=== PATIENT | female | born 1980 | race Two or more races ===

== ENCOUNTER 2016-12-06 13:21 | Emergency (ER) | payer OTHER ==
[2016-12-06 13:48] VITALS: BP 110/78; PULSE 85; TEMP 98; BMI 31.2
[2016-12-06] MEDS ORDERED: TOBRAMYCIN 0.3% OPHTH SOLN 5 ML BOTTLE OU ONE (14:56)
[2016-12-06] MEDS ORDERED: TOBRAMYCIN 0.3% OPHTH SOLN 5 ML BOTTLE ONE (14:58)
--- NOTE | 2016-12-06 15:07 | PDOC ---
History of Present Illness - General Chief Complaint: Pain Stated Complaint: EYES PAIN/ CHEMICAL CONTAMINATION Time Seen by Provider: 12/06/16 14:41 History Source: Patient Exam Limitations: No Limitations - History of Present Illness Initial Comments: 12/06/16 15:01 36 yr female with bilateral eye irritation after spilling chemical in her eyes yesterday. Pt immediately flushed with water, woke up today with red eyes. no discharge no vision change, positive light sensitvity. Severity: mild Past History - Past Medical History Allergies/Adverse Reactions: Allergies Allergy/AdvReac Type Severity Reaction Status Date / Time No Known Allergies Allergy Verified 12/06/16 13:48 Home Medications: Ambulatory Orders Tobramycin 0.3% Ophth Soln [Tobrex Ophthalmic Solution -] 1 - 2 drop OU Q4HWA # 2 bottle 12/06/16 - Psycho/Social/Smoking Cessation Hx Suicidal Ideation: No Smoking History: Never smoked Information on smoking cessation initiated: No Review of Systems - Review of Systems Able to Perform ROS?: Yes Is the patient limited [place]an proficient: No Constitutional: No: Symptoms Reported HEENTM: Yes: Symptoms Reported, See HPI, Eye Pain. No: Recent change in vision Respiratory: No: Symptoms reported Cardiac (ROS): No: Symptoms Reported ABD/GI: No: Symptoms Reported *Physical Exam - Vital Signs Last Vital Signs Temp Pulse Resp BP Pulse Ox 98 F 85 18 110/78 98 12/06/16 13:45 12/06/16 13:45 12/06/16 13:45 12/06/16 13:45 12/06/16 13:45 - Physical Exam General Appearance: Yes: Nourished, Appropriately Dressed HEENT: positive: EOMI, MARIA FERNANDA, Normal ENT Inspection, TMs Normal, Pharynx Normal, Other (bilateral sclera erythema, no drainage MYA EOMI ) Respiratory/Chest: positive: Lungs Clear, Normal Breath Sounds. negative: Chest Tender Cardiovascular: positive: Regular Rhythm, Regular Rate Procedures - Eye Procedure Alcaine Drops Administered: Yes Antibiotic Oinment/Drps Admin: both eyes (tobramycin drops placed) Progress: 12/06/16 15:04 neg fluoroscein uptake neg abrasion Medical Decision Making - Medical Decision Making 12/06/16 15:04 cc: chemical spill in eyes yesterday, cleaning solution with lavender and massiel red and irritated today will give tobramycin eye drops and refer to optho for follow up *DC/Admit/Observation/Transfer Diagnosis at time of Disposition: Eye redness Chemical burn of eye or adnexa Qualifiers: Encounter type: initial encounter Laterality: unspecified laterality Qualified Code(s): T26.90XA - Corrosion of unspecified eye and adnexa, part unspecified, initial encounter - Discharge Dispostion Disposition: HOME Condition at time of disposition: Good - Prescriptions Prescriptions: Tobramycin 0.3% Ophth Soln [Tobrex Ophthalmic Solution -] 1 - 2 drop OU Q4HWA # 2 bottle - Referrals Referrals: Tanika Huerta MD [Primary Care Provider] - José Miguel Solano MD [Staff Physician] - - Patient Instructions Additional Instructions: follow with the eye doctor in 24-48hrs for a follow up exam use the tobramycin eye drops 2 drops four times a day for 5 days to both eyes take an over the counter pain reliever such as motrin for pain
== END 2016-12-06 15:19 | disposition home or self-care (01) ==
LOC: JERFT 13:21
DX: T26.90XA Corrosion of unspecified eye and adnexa, part unspecified, initial encounter (principal); X58.XXXA Exposure to other specified factors, initial encounter; Y93.89 Activity, other specified; Y92.9 Unspecified place or not applicable
CPT/HCPCS: 99281-25

== ENCOUNTER 2017-05-05 19:18 | Emergency (ER) | payer OTHER ==
[2017-05-05 19:40] VITALS: BP 128/85; PULSE 83; TEMP 98.8; BMI 28.3
[2017-05-05] MEDS ORDERED: KETOROLAC TROMETHAMINE 60 MG/2 ML VIAL ONE (19:48)
--- NOTE | 2017-05-05 19:51 | PDOC ---
History of Present Illness - General Chief Complaint: Pain, Acute Stated Complaint: TOOTH PAIN Time Seen by Provider: 05/05/17 19:49 History Source: Patient Exam Limitations: No Limitations - History of Present Illness Initial Comments: 05/05/17 20:09 Patient here for evaluation of significant dental pain in multiple areas. States nose has a problem tooth under a root canal on the right lower first molar with swelling, also has 2 other teeth on the left side upper and lower that have been cracked for many weeks. Patient states has been unable to afford dental and restorative work but states pain has progressively worsened where she feels is unable to tolerate through the weekend. Denies fever, has some mild facial tenderness on the right side but no true swelling. Severity: reports: moderate, severe Pain Location: reports: face Associated Symptoms (Fall): headache Past History - Travel Traveled outside of the country in the last 30 days: No Close contact w/someone who was outside of country & ill: No - Past Medical History Allergies/Adverse Reactions: Allergies Allergy/AdvReac Type Severity Reaction Status Date / Time No Known Allergies Allergy Verified 05/05/17 19:34 Home Medications: Ambulatory Orders Tobramycin 0.3% Ophth Soln [Tobrex Ophthalmic Solution -] 1 - 2 drop OU Q4HWA # 2 bottle 12/06/16 Amoxicillin - [Amoxicillin 500mg Capsule -] 500 mg PO TID #21 capsule 05/05/17 Naproxen [Naprosyn -] 500 mg PO BID #14 tablet 05/05/17 Oxycodone HCl/Acetaminophen [Percocet 5-325 mg Tablet -] 1 - 2 tab PO Q4H PRN # 10 tablet MDD 6 05/05/17 Other medical history: Pt denies - Psycho/Social/Smoking Cessation Hx Suicidal Ideation: No Smoking History: Never smoked Information on smoking cessation initiated: No Hx Alcohol Use: No Drug/Substance Use Hx: No Substance Use Type: None Trauma Specific PMHX - Complaint Specific PMHX Back Injury: No Neck Injury: No Review of Systems - Review of Systems Able to Perform ROS?: Yes Comments:: 05/05/17 20:10 Is the patient limited [place]err[place]ian proficient: Yes Constitutional: Yes: Symptoms Reported, See HPI, Malaise HEENTM: Yes: Symptoms Reported, See HPI, Nose Congestion Respiratory: Yes: Symptoms reported *Physical Exam - Vital Signs Last Vital Signs Temp Pulse Resp BP Pulse Ox 98.8 F 83 20 128/85 100 05/05/17 19:34 05/05/17 19:34 05/05/17 19:34 05/05/17 19:34 05/05/17 19:34 - Physical Exam General Appearance: Yes: Appropriately Dressed, Apparent Distress HEENT: positive: MARIA FERNANDA, TMs Normal, Pharynx Normal, Other (has some mild swelling nonfluctuant to right lower first molar with some discoloration to the gums, no true abscess palpated but is quite tender. Left first molar upper with missing tooth, left lower wisdom tooth swollen without any abscess noted to upper or lower aspect of left side of gums.) Neck: positive: Supple. negative: Tender Respiratory/Chest: positive: Chest Tender, Lungs Clear Musculoskeletal: negative: Normal Inspection, CVA Tenderness Extremity: positive: Normal Capillary Refill, Normal Inspection Integumentary: positive: Normal Color, Dry, Warm Neurologic: positive: vice president of talent management II-XII NML intact, Fully Oriented, Alert, Normal Mood/ Affect, Normal Response, Motor Strength 5/5 Progress Note - Progress Note Progress Note: Multiple dental injury/infection. Will start amoxicillin, medicated with IM Toradol, given #10 Percocet tablets and instructed to seek immediate dental evaluation for definitive treatment. Understands need to return immediately to ER for worsening swelling, fevers worsened pain. *DC/Admit/Observation/Transfer Diagnosis at time of Disposition: Toothache - Discharge Dispostion Disposition: HOME Condition at time of disposition: Stable Admit: No - Prescriptions Prescriptions: Amoxicillin - [Amoxicillin 500mg Capsule -] 500 mg PO TID #21 capsule Naproxen [Naprosyn -] 500 mg PO BID #14 tablet Oxycodone HCl/Acetaminophen [Percocet 5-325 mg Tablet -] 1 - 2 tab PO Q4H PRN # 10 tablet MDD 6 PRN Reason: Pain - Referrals Referrals: Tanika Huerta MD [Primary Care Provider] - - Patient Instructions Printed Discharge Instructions: DI for Dental Pain Additional Instructions: Rest, drink lots of fluids: Teas, water, soups Saltwater gargles/ keep mouth clean and rinse after each meal May use wet teabag for pain relief to area/ Anbesol or [id number] remedies Avoid hard chewing foods, stick to ice cream, Jell-O, yogurt etc. Tylenol or Motrin for fever and pain May use Percocet one or 2 tablets every 6 hours for severe pain, understanding will make dizzy and sleepy Complete all medication as prescribed Seek dental appointment as soon as possible for evaluation of dental injury/pain Followup with private physician in one to 2 days as needed Return to emergency department for worsened symptoms, fevers, swelling to face or worsened pain - Post Discharge Activity Work/School Note: Back to Work
[2017-05-05] MEDS ORDERED: KETOROLAC TROMETHAMINE 60 MG/2 ML VIAL IM ONE (20:03)
== END 2017-05-05 20:18 | disposition home or self-care (01) ==
LOC: JERFT 19:18
PROC: 3E0233Z Introduction of Anti-inflammatory into Muscle, Percutaneous Approach (ICD-10-PCS; principal; 2017-05-05)
DX: K08.89 Other specified disorders of teeth and supporting structures (principal)
CPT/HCPCS: 99281-25

== ENCOUNTER 2017-05-16 08:39 | Emergency (ER) | payer OTHER ==
[2017-05-16 08:42] VITALS: BP 127/64; PULSE 88; TEMP 98.2; BMI 27.7
--- NOTE | 2017-05-16 09:03 | PDOC ---
History of Present Illness - General Chief Complaint: Pain Stated Complaint: TOOTHACHE Time Seen by Provider: 05/16/17 08:56 History Source: Patient Exam Limitations: No Limitations - History of Present Illness Initial Comments: 05/16/17 08:56 CHIEF COMPLAINT: Left upper left first molar decay with pain. HISTORY OF PRESENT ILLNESS: Patient is an otherwise healthy, 37 y/o female with left upper dental pain for several months, worse in the last two day. Throbbing pain. Patient has been seen in the ER for the same. Has not been able to get an appointment for dentist. Patient denies any pain, no respiratory difficulty, no difficulty swallowing. Past History - Past Medical History Allergies/Adverse Reactions: Allergies Allergy/AdvReac Type Severity Reaction Status Date / Time No Known Allergies Allergy Verified 05/16/17 08:39 Home Medications: Ambulatory Orders Ibuprofen [Motrin -] 600 mg PO QID #28 tablet 05/16/17 Oxycodone HCl/Acetaminophen [Percocet 5-325 mg Tablet] 1 - 2 tab PO Q4H #24 tablet MDD 12 05/16/17 Penicillin V Potassium [Pen Vee K -] 500 mg PO QID #40 tablet 05/16/17 Other medical history: none - Psycho/Social/Smoking Cessation Hx Anxiety: No Suicidal Ideation: No Smoking History: Never smoked Have you smoked in the past 12 months: No Information on smoking cessation initiated: No Hx Alcohol Use: No Drug/Substance Use Hx: No Substance Use Type: None Review of Systems - Review of Systems Constitutional: No: Symptoms Reported HEENTM: Yes: Mouth Pain, Dental Problems. No: Throat Pain, Throat Swelling, Difficulty Swallowing, Mouth Swelling Respiratory: No: Symptoms reported Cardiac (ROS): No: Symptoms Reported ABD/GI: No: Symptoms Reported Musculoskeletal: No: Symptoms Reported Integumentary: No: Symptoms Reported Neurological: No: Symptoms reported Hematologic/Lymphatic: No: Symptoms Reported, Lymph Node Abnormalities, Swollen Glands All Other Systems: Reviewed and Negative *Physical Exam - Vital Signs Last Vital Signs Temp Pulse Resp BP Pulse Ox 98.2 F 88 18 127/64 100 05/16/17 08:40 05/16/17 08:40 05/16/17 08:40 05/16/17 08:40 05/16/17 08:40 - Physical Exam General Appearance: Yes: Appropriately Dressed. No: Apparent Distress HEENT: positive: Other (left first upper molar pain, decay no visible abscess. ). negative: Tonsillar Exudate, Tonsillar Erythema, Rhinorrhea, Sinus Tenderness, TM Bulging, TM Dull, TM Erythema, Excessive drooling Neck: positive: Trachea midline. negative: Tender, Tender lateral, Tender midline Respiratory/Chest: positive: Lungs Clear, Normal Breath Sounds Cardiovascular: positive: Regular Rhythm, Regular Rate Lymphatic: negative: Adenopathy Integumentary: positive: Normal Color, Dry Neurologic: positive: Fully Oriented, Alert, Normal Mood/Affect Medical Decision Making - Medical Decision Making 05/16/17 09:49 A/P: Patient here for evaluation of dental decay with pain. No facial edema, no difficulty swallowing, no throat pain, no difficulty breathing. Called patient' s dentist to states they take walk-ins from 10-12 instructed patient to go immediately to dental office upon discharge. Prescription for Percocet, penicillin and Motrin given to patient, she verbalized understanding. Will follow-up as instructed. *DC/Admit/Observation/Transfer Diagnosis at time of Disposition: Toothache, Dental decay - Discharge Dispostion Admit: No - Prescriptions Prescriptions: Ibuprofen [Motrin -] 600 mg PO QID #28 tablet Penicillin V Potassium [Pen Vee K -] 500 mg PO QID #40 tablet Oxycodone HCl/Acetaminophen [Percocet 5-325 mg Tablet] 1 - 2 tab PO Q4H #24 tablet MDD 12 - Patient Instructions Printed Discharge Instructions: DI for Tooth Decay Additional Instructions: Please follow up in the office of your dentist between 10 and 12 today. They take walk-ins.
== END 2017-05-16 09:21 | disposition home or self-care (01) ==
LOC: JERFT 08:39
DX: K02.9 Dental caries, unspecified (principal)
CPT/HCPCS: 99281-25

== ENCOUNTER 2017-11-15 06:10 | Emergency (ER) | payer OTHER ==
[2017-11-15 06:30] VITALS: BMI 33.5
--- NOTE | 2017-11-15 07:23 | PDOC ---
History of Present Illness - General History Source: Patient Exam Limitations: No Limitations - History of Present Illness Initial Comments: 11/15/17 08:04 The patient is a 37 year old approximately 15 week female(), with no significant past medical history, who presents to the emergency department with a headache for approximately 3 days. The patient reports her headache is constant and localized frontally and is nonradiating in nature. She describes her headache as a pounding sensation. She reports associated photophobia and nausea, but denies any blurry vision, dizziness, lightheadedness, numbness, or tingling. Patient reports she has not taken anything for the pain. Patient reports mild suprapubic discomfort, but denies any vaginal bleeding or discharge. She denies any vomiting, diarrhea, or constipation. She denies any flank pain, dysuria, hematuria, frequency, or urgency. She reports intermittent cough, but denies any fever or chills. She denies any chest pain, shortness of breath, diaphoresis, or palpitations. Allergies: NKDA Past Surgical History: None reported Social History: Non smoker. No ETOH or recreational drug use. OB: Argenis Dominguez <Snehal Masters - Last Filed: 11/15/17 08:04> <Kenyon Mustafa - Last Filed: 11/15/17 09:57> - General Chief Complaint: Headache Stated Complaint: HEADACHE, 15 WKS Time Seen by Provider: 11/15/17 07:19 Past History <Snehal Masters - Last Filed: 11/15/17 08:04> - Past Medical History COPD: Yes Other medical history: Pt denies - Suicide/Smoking/Psychosocial Hx Smoking History: Never smoked Have you smoked in the past 12 months: No Information on smoking cessation initiated: No Hx Alcohol Use: No Drug/Substance Use Hx: No Substance Use Type: None <Kenyon Mustafa - Last Filed: 11/15/17 09:57> - Past Medical History Allergies/Adverse Reactions: Allergies Allergy/AdvReac Type Severity Reaction Status Date / Time No Known Allergies Allergy Verified 11/15/17 06:22 Home Medications: Ambulatory Orders NK [No Known Home Medication] 11/15/17 Review of Systems - Review of Systems Able to Perform ROS?: Yes Comments:: 11/15/17 08:05 CONSTITUTIONAL: No fever, no chills, no fatigue EYES:+Photophobia. No blurry vision. ENT: No ear pain, no sore throat CARDIOVASCULAR: No chest pain, no palpitations RESPIRATORY: +Cough. No SOB GI: +Suprapubic abdominal pain. No nausea, no vomiting, no constipation, no diarrhea GENITOURINARY: No dysuria, no frequency, no hematuria MUSCULOSKELETAL: No back pain, no joint pain, no myalgias SKIN: No rash NEURO: +Headache. No dizziness or lightheadedness. <Snehal Masters - Last Filed: 11/15/17 08:04> *Physical Exam - Vital Signs Last Vital Signs Temp Pulse Resp BP Pulse Ox 98.0 F 85 20 126/68 97 11/15/17 06:23 11/15/17 06:23 11/15/17 06:23 11/15/17 06:23 11/15/17 06:23 - Physical Exam Comments: 11/15/17 08:05 CONSTITUTIONAL: Well-appearing; well-nourished; in no apparent distress HEAD: Normocephalic; atraumatic EYES: +Photophobia. PERRL; EOM intact ENMT: External appears normal; normal oropharynx NECK: Supple; non-tender; no cervical lymphadenopathy. No meningismus. CARD: Normal S1, S2; no murmurs, rubs, or gallops RESP: Normal chest excursion with respiration; breath sounds clear and equal bilaterally; no wheezes, rhonchi, or rales ABD: Soft, non-distended; non-tender; no palpable organomegaly, no palpable hernias EXT: Normal ROM in all four extremities; non-tender to palpation; distal pulses intact SKIN: Warm, dry, no rash NEURO: No focal neurological deficiencies. Alert, awake, appropriate. Cranial nerves 2-12 intact. No motor deficits in the in face, upper extremities and lower extremities. Normoreflexic in the upper and lower extremities. Normal speech. Toes are down-going bilaterally. Gait is normal without ataxia. No cerebellar deficits. 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 I suspect migraine headache. Subarachnoid hemorrhage or meningitis highly unlikely. Neurological evaluation reveals no focal deficits, there is no evidence of meningismus; I do not suspect preeclampsia or sinus venous thrombosis. We'll administer Reglan and Benadryl. We'll judiciously hydrate. Will reevaluate. Likely discharge. 11/15/17 08:46 Patient reassessed. Patient is resting comfortably, with improvement in level of her symptoms. We'll continue to reassess. 11/15/17 09:54 Patient reassessed. Patient is resting comfortably; patient is symptom-free. The headache is completely resolved. I do not suspect subarachnoid hemorrhage at this time. There is no evidence of meningismus. 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 <Kenyon Mustafa - Last Filed: 11/15/17 09:57> *DC/Admit/Observation/Transfer - Attestations Scribe Attestion: 11/15/17 08:05 Documentation prepared by Snehal Masters, acting as medical economics consultant for Kenyon Mustafa MD. <Snehal Masters - Last Filed: 11/15/17 08:04> - Attestations Physician Attestion: 11/15/17 08:11 The documentation was prepared by the scribe under my direct supervision. I have reviewed the documentation which correctly represents the findings, medical decision-making and critical action taken by me. <Kenyon Mustafa - Last Filed: 11/15/17 09:57> Diagnosis at time of Disposition: Headache in Qualifiers: Trimester: first trimester Qualified Code(s): O26.891 - Other specified related conditions, first trimester; R51 - Headache; R51 - Headache - Discharge Dispostion Disposition: HOME Condition at time of disposition: Stable - Referrals Referrals: Tanika Huerta MD [Primary Care Provider] - - Patient Instructions Printed Discharge Instructions: DI for Headache - Post Discharge Activity
[2017-11-15] MEDS ORDERED: METOCLOPRAMIDE HCL INJECTION 10 MG/2 ML VIAL IVPUSH ONE (07:35)
[2017-11-15] MEDS ORDERED: SODIUM CHLORIDE 500 ML IV STA (07:35)
[2017-11-15] MEDS ORDERED: METOCLOPRAMIDE HCL INJECTION 10 MG/2 ML VIAL ONE (08:07)
[2017-11-15 08:14] LABS: URINE APPEARANCE SLCLOUDY; URINE BILIRUBIN NEGATIVE (NEGATIVE); URINE BLOOD NEGATIVE (NEGATIVE); URINE COLOR YELLOW; URINE GLUCOSE (UA) NEGATIVE (NEGATIVE); URINE KETONE NEGATIVE (NEGATIVE); URINE NITRITE NEGATIVE (NEGATIVE); URINE PROTEIN NEGATIVE (NEGATIVE); URINE UROBILINOGEN NEGATIVE mg/dL (0.2-1.0)
[2017-11-15 08:18] LABS: URINE LEUK ESTERASE 3+ (NEGATIVE)
[2017-11-15 08:19] LABS: EPI CELLS MODERATE /HPF (FEW); URINE BACTERIA MODERATE /hpf (NONE SEEN); URINE MUCUS FEW
[2017-11-15 10:26] VITALS: BP 105/71; PULSE 72; TEMP 98.1
--- NOTE | 2017-11-17 07:31 | PDOC ---
Patient Follow-up (Call Back) - Post ED Follow - Up Condition at time of discharge: Stable Disposition at time of original discharge: HOME Reason for Call Back: Abnwl. Microbiology (Grp B strep on ucx, no sensitivity Called pt, 15 weeks , no dysuria, flank pain, n/v/f/c Rx for keflex sent to pharmacy, will f/u on final report)
--- NOTE | 2017-11-18 08:08 | PDOC ---
Patient Follow-up (Call Back) - Post ED Follow - Up Condition at time of discharge: Stable Disposition at time of original discharge: HOME Reason for Call Back: Abnwl. Microbiology (Patient with positive urine culture on Keflex, sensitivity still pending.)
== END 2017-11-15 10:00 | disposition home or self-care (01) ==
LOC: JER 06:10
PROC: 3E033GC Introduction of Other Therapeutic Substance into Peripheral Vein, Percutaneous Approach (ICD-10-PCS; principal; 2017-11-15)
PROC: 3E033GC Introduction of Other Therapeutic Substance into Peripheral Vein, Percutaneous Approach (ICD-10-PCS; 2017-11-15)
DX: O26.892 Other specified pregnancy related conditions, second trimester (principal); R51 Headache; Z3A.15 15 weeks gestation of pregnancy
CPT/HCPCS: 81003; 81015; 87086; 87186; 99282-25

== ENCOUNTER 2017-12-08 15:09 | Emergency (ER) | payer OTHER ==
[2017-12-08] MEDS ORDERED: ACETAMINOPHEN 325 MG TABLET (FP) PO ONE (15:30)
--- NOTE | 2017-12-08 15:30 | PDOC ---
Rapid Medical Evaluation Time Seen by Provider: 12/08/17 15:25 Medical Evaluation: Allergies Allergy/AdvReac Type Severity Reaction Status Date / Time No Known Allergies Allergy Verified 11/15/17 06:22 12/08/17 15:26 I have performed a brief in-person evaluation of this patient. The patient presents with a chief complaint of: Cough w/ rhinorrhea, WILL, body aches and fever x 3 days. Currently ~6 weeks w/ +IUP w/ FHR on [facility] at [facility] as per pt Pertinent physical exam findings:Temp 99.6 w/ HR of 120 I have ordered the following:Tylenol 650 mg The patient will proceed to the ED for further evaluation.
[2017-12-08 15:52] VITALS: BP 118/72; PULSE 120; TEMP 99.6; BMI 33.5
--- NOTE | 2017-12-08 16:56 | PDOC ---
History of Present Illness - General Chief Complaint: Respiratory Stated Complaint: FEVER, (4 WKS ) Time Seen by Provider: 12/08/17 15:25 History Source: Patient Exam Limitations: No Limitations - History of Present Illness Initial Comments: 12/08/17 16:51 Patient is a 37-year-old female, currently 17 weeks presents with 4 days of nasal congestion, body aches, fever, no nausea vomiting or diarrhea. Patient eating and drinking without difficulty. She denies any urinary symptoms , no chest pain or shortness of breath. Past Medical History: [Denies]. Allergies: No known allergies Medications: vitamins Family History: Non-contributory Social History: Denies smoking, alcohol use, or IVDU Review of Systems GENERAL/CONSTITUTIONAL: Fever and chills and body aches, No weakness. No weight change.] HEAD, EYES, EARS, NOSE AND THROAT: [No change in vision. No ear pain or discharge. No sore throat. Nasal congestion] CARDIOVASCULAR: [No chest pain or shortness of breath.] RESPIRATORY: [No cough, wheezing, or hemoptysis.] GASTROINTESTINAL: [No nausea, vomiting, diarrhea or constipation. No rectal bleeding.] GENITOURINARY: [No dysuria, frequency, or change in urination.] MUSCULOSKELETAL: [No joint or muscle swelling or pain. No neck or back pain.] SKIN AND BREASTS: [No rash or easy bruising.] NEUROLOGIC: [Headache no vertigo, loss of consciousness, or loss of sensation.] PSYCHIATRIC: [No depression or anxiety.] ENDOCRINE: [No increased thirst. No abnormal weight change.] HEMATOLOGIC/LYMPHATIC: [No anemia, easy bleeding, or history of blood clots.] ALLERGIC/IMMUNOLOGIC: [No hives or skin allergy. No latex allergy.] Physical Exam: GENERAL: [The patient is awake, alert, and fully oriented, in no acute distress. ] EYES: [Pupils equal, round and reactive to light, extraocular movements intact, sclera anicteric, conjunctiva clear.] ENT: [Ears normal, nares congested but patent after nose blowing, oropharynx clear without exudates. Moist mucous membranes. No uvula deviation. No sinus pressure and pain] NECK: [Normal range of motion, supple without lymphadenopathy, JVD, or masses.] LUNGS: [Breath sounds equal, clear to auscultation bilaterally. No wheezes, and no crackles.] HEART: [Regular rate and rhythm, normal S1 and S2 without murmur, rub or gallop. ] ABDOMEN: [Gravid , nontender, normoactive bowel sounds. No guarding, no rebound. No masses. No bruising or abrasions] MUSCULOSKELETAL: [Normal range of motion, no edema. No clubbing or cyanosis. No cords, erythema, or tenderness. No CVA Tenderness with fist.] NEUROLOGICAL: [Cranial nerves II through XII grossly intact. Normal speech, normal gait.] SKIN: [Warm, Dry, normal turgor, no rashes or lesions noted.] 12/08/17 16:51 12/08/17 17:03 Past History - Past Medical History Allergies/Adverse Reactions: Allergies Allergy/AdvReac Type Severity Reaction Status Date / Time No Known Allergies Allergy Verified 12/08/17 16:02 Home Medications: Ambulatory Orders NK [No Known Home Medication] 12/08/17 COPD: Yes - Reproductive History (#): 3 Para: 2 Cervical CA: No Dysfunctional Uterine Bleeding: No Ectopic : No Endometrial CA: No Polycystic Ovaries: No Therapeutic (s) & number: No Tubal Ligation: No - Suicide/Smoking/Psychosocial Hx Smoking History: Never smoked Have you smoked in the past 12 months: No Hx Alcohol Use: No Drug/Substance Use Hx: No Substance Use Type: None *Physical Exam - Vital Signs Last Vital Signs Temp Pulse Resp BP Pulse Ox 99.6 F 120 H 20 118/72 99 12/08/17 15:49 12/08/17 15:49 12/08/17 15:49 12/08/17 15:49 12/08/17 15:49 ED Treatment Course - Medications Given in the ED: ED Medications Discontinued Medications Generic Name Dose Route Start Last Admin Trade Name Freq PRN Reason Stop Dose Admin Acetaminophen 650 mg 12/08/17 15:30 12/08/17 15:54 Tylenol - PO 12/08/17 15:31 650 mg ONCE ONE Administration Medical Decision Making - Medical Decision Making 12/08/17 16:53 A/P: Patient with fever, body aches and chills, headache. 12/08/17 17:04 Rapid influenza sent, patient is influenza A positive. Patient is out of the window for Tamiflu. She is able to tolerate fluids and is well-appearing, will DC patient home supportive care increase fluid intake to maintain proper hydration. Increase protein intake. Follow-up with PMD on Monday if any dizziness, lethargy, feeling of faint, or any other concerns return immediately to ER *DC/Admit/Observation/Transfer Diagnosis at time of Disposition: Influenza A - Discharge Dispostion Disposition: HOME Condition at time of disposition: Stable Admit: No - Referrals - Patient Instructions Printed Discharge Instructions: DI for Influenza -- Adult Additional Instructions: You have been diagnosed with influenza a. Please take the medication as directed. You are contagious. Please attempt to avoid contact of multiple individuals as this will cause the infection to spread. Return to emergency room if shortness of breath, wheezing, fever greater than 101, chest pain, or fainting occurs. - Post Discharge Activity Forms/Work/School Notes: Back to Work
== END 2017-12-08 17:11 | disposition home or self-care (01) ==
LOC: JER 15:09 → JERFT 15:09
DX: O98.511 Other viral diseases complicating pregnancy, first trimester (principal); J10.1 Influenza due to other identified influenza virus with other respiratory manifestations; Z3A.01 Less than 8 weeks gestation of pregnancy
CPT/HCPCS: 87804; 99281-25

== ENCOUNTER 2018-05-07 13:53 | Inpatient (IN) | payer OTHER ==
[2018-05-07] MEDS ORDERED: ELECTROLYTE-148 SOLN 500 ML IV ONE (14:00)
[2018-05-07] MEDS ORDERED: AMPICILLIN SODIUM 2 GM VIAL ONE (14:31)
[2018-05-07 14:37] LABS: BASO % 0.9 % (0-2.0); HEMATOCRIT 40.3 % (32.4-45.2); HEMOGLOBIN 13.5 GM/dL (10.7-15.3); LYMPH % 9.9 % (8-40); MCH 29.5 pg (25.7-33.7); MCHC 33.4 g/dl (32.0-36.0); MEAN CELL VOLUME 88.4 fl (80-96); MEAN PLT VOLUME 8.8 fl (7.5-11.1); MONO % 3.9 % (3.8-10.2); NEUT % 85.3 % (42.8-82.8); PLATELET COUNT 202 K/MM3 (134-434); RBC 4.56 M/mm3 (3.60-5.2); RDW 14.4 % (11.6-15.6); WHITE BLOOD COUNT 14.3 K/mm3 (4.0-10.0)
--- NOTE | 2018-05-07 14:37 | HP ---
Past Medical History - Admission Chief Complaint: contractions History of Present Illness: 37 y/o P2 female with SIUP at 39.5 weeks here with complaints of painful contractions. Was seen on L&D twice over the weekend, was not dilated, and sent home. No LOF/VB. complicated by AMA, GBS positive. H/O X 2. History Source: Patient, Medical Record Limitations to Obtaining History: No Limitations - Past Medical History Cardiovascular: No: HTN Pulmonary: Yes: COPD Gastrointestinal: No: GERD Reproductive: No: Ectopic , Fibroids, PID ...: 3 ...Para: 2 Heme/Onc: No: Anemia Infectious Disease: No: HIV, MRSA, STD's Musculoskeletal: No: Chronic low back pain Endocrine: No: Diabetes Insipidus, Diabetes Mellitus - Past Surgical History Hx Myomectomy: No Hx Transabdominal Cerclage: No - Smoking History Smoking history: Never smoked Have you smoked in the past 12 months: No - Alcohol/Substance Use Hx Alcohol Use: No - Social History Usual Living Arrangement: Yes: With Spouse ADL: Independent Home Medications - Allergies Allergies/Adverse Reactions: Allergies Allergy/AdvReac Type Severity Reaction Status Date / Time No Known Allergies Allergy Verified 05/07/18 14:25 - Home Medications Home Medications: Ambulatory Orders Pnv No.95/Ferrous Fum/Folic AC [ Vitamin Tablet] 1 each PO DAILY Review of Systems - Review of Systems Constitutional: reports: No Symptoms Eyes: reports: No Symptoms HENT: reports: No Symptoms Neck: reports: No Symptoms Cardiovascular: reports: No Symptoms Respiratory: reports: No Symptoms Gastrointestinal: reports: No Symptoms Genitourinary: reports: No Symptoms Breasts: reports: No Symptoms Reported Musculoskeletal: reports: No Symptoms Integumentary: reports: No Symptoms Neurological: reports: No Symptoms Endocrine: reports: No Symptoms Hematology/Lymphatic: reports: No Symptoms Psychiatric: reports: No Symptoms Physical Exam - Maternity Constitutional: Yes: Well Nourished, Mild Distress Eyes: Yes: Conjunctiva Clear, EOM Intact HENT: Yes: Atraumatic, Normocephalic Neck: Yes: Supple, Trachea Midline Cardiovascular: Yes: Regular Rate and Rhythm Lungs: Clear to auscultation - Abdominal Exam/OB Number of Fetuses: Single Presentation: Vertex Contractions: Yes Regularity: Regular Intensity: Moderate Category: I Accelerations: Uniform Decelerations: None - Vaginal Exam/OB Vaginal Bleediing: No Dilatation (cm): 3 Effacement (%): 90 Amniotic Membrane Status: Intact Presentation: Vertex/Position Station: -2 - Physical Exam Psychiatric: Yes: Alert, Oriented Problem List - Problems (1) Active labor at term Code(s): [id number] - (2) GBS (group B Streptococcus carrier), +RV culture, currently Code(s): O99.820 - STREPTOCOCCUS B CARRIER STATE COMPLICATING Assessment/Plan 37 y/o with SIUP, active labor at 39.5 weeks AFVSS NST cat 1 admit to L&D start IV labs epidural prn GBS positive, start ampicillin
[2018-05-07] MEDS ORDERED: PROMETHAZINE HCL 25 MG/1 ML VIAL IVPUSH ONE (14:40)
[2018-05-07] MEDS ORDERED: BUTORPHANOL TARTRATE 1 MG/ML VIAL IVPB ONE (14:40)
[2018-05-07] MEDS ORDERED: AMPICILLIN - 2 GM in SODIUM CHLORIDE 100 ML IVPB ONE (14:42)
[2018-05-07 14:51] VITALS: BMI 39.0
[2018-05-07 14:53] LABS: INR 1.03 (0.83-1.09); PROTHROMBIN TIME (PATIENT) 11.6 SEC (9.7-13.0)
[2018-05-07] MEDS ORDERED: FENTANYL/BUPIVACAINE/NS/PF - PCEA - 50 ML DISP.SYRIN EP ONE ×2 (14:53→19:59)
[2018-05-07 14:54] LABS: ANION GAP 10 (8-16); BLOOD UREA NITROGEN 6 mg/dL (7-18); CALCIUM 9.1 mg/dL (8.5-10.1); CHLORIDE 103 mmol/L (98-107); CO2 24 mmol/L (21-32); CREATININE 0.6 mg/dL (0.55-1.02); GLUCOSE,RANDOM 105 mg/dL (74-106); POTASSIUM 3.6 mmol/L (3.5-5.1); SODIUM 137 mmol/L (136-145)
[2018-05-07 14:55] LABS: ACTIVATED PTT 26.9 SECONDS (25.2-36.5)
[2018-05-07] MEDS: FENTANYL/BUPIVACAINE/NS/PF - PCEA - 50 ML DISP.SYRIN EP SCH (15:15)
[2018-05-07] MEDS: ELECTROLYTE-148 SOLN 1,000 ML IV SCH (15:15)
[2018-05-07] MEDS ORDERED: NALOXONE HCL 0.4 MG/ML VIAL IVPUSH PRN (15:24)
[2018-05-07] MEDS ORDERED: TUBERCULIN PPD 5 TU/0.1ML SYRINGE (IN PATIENT USE ONLY) ID ONE (17:00)
[2018-05-07] MEDS ORDERED: AMPICILLIN SODIUM 1 GM VIAL ONE ×2 (18:23→22:10)
[2018-05-07] MEDS: AMPICILLIN - 1 GM in SODIUM CHLORIDE 100 ML IVPB SCH ×2 (18:30→22:15)
[2018-05-08] MEDS: ELECTROLYTE-148 SOLN 1,000 ML IV SCH (00:09)
[2018-05-08] MEDS ORDERED: FENTANYL/BUPIVACAINE/NS/PF - PCEA - 50 ML DISP.SYRIN EP ONE ×3 (01:02→10:24)
[2018-05-08] MEDS ORDERED: AMPICILLIN SODIUM 1 GM VIAL ONE ×3 (02:56→10:24)
[2018-05-08] MEDS: AMPICILLIN - 1 GM in SODIUM CHLORIDE 100 ML IVPB SCH ×4 (03:00→16:53)
[2018-05-08] MEDS ORDERED: ELECTROLYTE-148 SOLN 500 ML IV ONE (05:20)
[2018-05-08] MEDS ORDERED: BUPIVACAINE HCL/PF 0.25% (2.5MG/ML) 10 ML VIAL ONE (05:42)
[2018-05-08] MEDS ORDERED: ELECTROLYTE-148 SOLN 1,000 ML IV SCH (06:20)
[2018-05-08] MEDS ORDERED: OXYTOCIN 30 UNITS in 0.9% NS 30 UNIT/500 ML INFUS.BAG IVPB ONE (07:30)
[2018-05-08] MEDS ORDERED: ACETAMINOPHEN 1000 MG/100 ML VIAL (NON FORMULARY) IVPB ONE ×2 (09:09→17:45)
[2018-05-08] MEDS ORDERED: ACETAMINOPHEN INJECTION 100 ML IVPB ONE (09:13)
--- NOTE | 2018-05-08 09:39 | PN ---
Ante-Partal Exam - Subjective Subjective: Pt complaining of pressure/pelvic pressure. S/P AROm at 2350 last night. FHR now 160s Vital Signs: Vital Signs Temperature 99.4 F 05/08/18 08:57 Pulse Rate 106 H 05/08/18 09:00 Respiratory Rate 18 05/08/18 09:00 Blood Pressure 130/73 05/08/18 09:00 O2 Sat by Pulse Oximetry (%) 97 05/08/18 09:00 Bleeding: No Headache: No Visual changes: No Right upper quadrant pain: No - Contractions Contractions: Yes Regularity: Regular Intensity: Mod/Strong - Exam during Labor Heart Rate: 160 Variability: Moderate Category: I Monitor Accelerations: Present Monitor Decelerations: None Exam: Vaginal Dilatation (cm): 6 Effacement (%): 90 Amniotic Membrane Status: Ruptured Presentation: Vertex Station: 0 - Assessment/Plan Assessment/Plan: FHR now 160s, maternal temp 99.4. IV Tylenol given continue pitocin for active management of labor if becomes febrile or FHR tachy, will add gentamicin for possible chorio
[2018-05-08] MEDS: PRENATAL VITAMINS W/ FOLIC ACID TABLET (FP) PO SCH (10:36)
[2018-05-08] MEDS ORDERED: LIDOCAINE HCL 1% PRESERVATIVE FREE - 30ML VIAL ONE (12:46)
[2018-05-08] MEDS ORDERED: OXYTOCIN 20 UNITS in 0.9% NS 20 UNIT/1,000 ML INFUS.BAG IV ONE ×3 (12:46→17:12)
[2018-05-08] MEDS ORDERED: GENTAMICIN SO4 80 MG/2 ML VIAL ONE (13:22)
[2018-05-08] MEDS: GENTAMICIN 80 MG PREMIXED IVPB 80 MG/100 ML BAG IVPB ONE ×2 (13:25→17:47)
--- NOTE | 2018-05-08 13:56 | PN ---
Ante-Partal Exam - Subjective Subjective: Pt 9.5cm dilated and began pushing as cervix was retractable behind babies head. Mom with Temp of 101. Gentamicin added to regimen and pt s/p IV Tylenol. Baby now tachycardic to 190s with some variable decelerations. Vital Signs: Vital Signs Temperature 99.1 F 05/08/18 12:00 Pulse Rate 84 05/08/18 12:15 Respiratory Rate 18 05/08/18 12:15 Blood Pressure 120/90 05/08/18 12:15 O2 Sat by Pulse Oximetry (%) 98 05/08/18 12:00 Bleeding: Yes Bleeding Description: Mild Headache: No Visual changes: No Right upper quadrant pain: No Pain (scale 1-10): 2 - Contractions Contractions: Yes Regularity: Regular Intensity: Strong - Exam during Labor Heart Rate: 190 Variability: Moderate Category: II Monitor Accelerations: Present Monitor Decelerations: Variable Exam: Vaginal Dilatation (cm): 9.5 Effacement (%): 100 Amniotic Membrane Status: Ruptured Presentation: Vertex - Assessment/Plan Assessment/Plan: Pt pushing for approx 1 hour with no progress, cervix still 9.5cm dilated when I arrived cervix retractable but baby with alot of caput, station still at 0 still some cervix palpated and a lot of caput, do not believe vacuum application would be helpful/appropriate plan for delivery - R/B/A discussed and consents signed anesthesia/nursery/PAULO aware
[2018-05-08] MEDS ORDERED: oxyCODONE HCL 5 MG TABLET PO PRN (13:58)
[2018-05-08] MEDS ORDERED: IBUPROFEN 800 MG/8 ML IJ IVPB PRN (13:58)
[2018-05-08] MEDS ORDERED: LIDO 2%/EPI 1:200000 PRESRVFRE (20 ML SDVIAL) ONE (14:02)
[2018-05-08] MEDS ORDERED: PHENYLEPHRINE HCL 10 MG/1 ML SINGLE DOSE VIAL ONE (14:04)
[2018-05-08] MEDS ORDERED: ceFAZolin SODIUM 1 GM VIAL ONE (14:35)
[2018-05-08] MEDS ORDERED: MIDAZOLAM HCL 2 MG/2 ML SINGLE DOSE VIAL ONE (14:36)
--- NOTE | 2018-05-08 15:05 | OP ---
Operative Note - Note: Operative Date: 05/08/18 Pre-Operative Diagnosis: tachycardia, maternal fever, suspected chorioamnionitis, SIUP at 39 weeks, failure to descend Operation: primary delivery Findings: normal b/l tubes and ovaries fetus in LOP position Post-Operative Diagnosis: Same as Pre-op Surgeon: Georgie Casas Vp Packaging: Kathleen Espinoza Anesthesiologist/BANQUET STEWARD: Vincenzo Maloney Anesthesia: Epidural Specimens Removed: placenta Estimated Blood Loss (mls): 700 Operative Report Dictated: Yes
[2018-05-08] MEDS ORDERED: ACETAMINOPHEN 325 MG TABLET (FP) PO PRN (15:20)
[2018-05-08] MEDS ORDERED: IBUPROFEN 600 MG TABLET (FP) PO PRN (15:20)
[2018-05-08] MEDS ORDERED: ONDANSETRON 4 MG/2 ML VIAL IVPUSH PRN (15:20)
[2018-05-08 15:22] LABS: ARTERIAL BLD GAS O2 SATURATION 9.8 % (90-98.9); ARTERIAL BLOOD GAS PCO2 61.6 mmHg (35-45); ARTERIAL BLOOD GAS PO2 10.6 mmHg (80-100)
[2018-05-08 15:23] LABS: ARTERIAL BLOOD GAS BASE EXCESS -3.6 meq/l (-2-2)
[2018-05-08 15:24] LABS: VENOUS PC02 48.9 mmHg (38-52); VENOUS PH 7.29 (7.32-7.42)
[2018-05-08 15:30] LABS: ARTERIAL BLOOD GAS pH 7.23 (7.35-7.45); VENOUS PO2 18.1 mmHg (28-48)
--- NOTE | 2018-05-08 16:02 | OP ---
DATE OF OPERATION: 05/08/2018 PREOPERATIVE DIAGNOSES: Single intrauterine at 39 weeks, active labor, maternal temperature with tachycardia, suspected chorioamnionitis, nonreassuring heart tones, and failure to descend. POSTOPERATIVE DIAGNOSES: Single intrauterine at 39 weeks, active labor, maternal temperature with tachycardia, suspected chorioamnionitis, nonreassuring heart tones, and failure to descend. PROCEDURE: Primary low transverse section. SURGEON: Georgie Casas DO SUPERVISING ARCHITECT: GUY Nails ANESTHESIA: Spinal by Vincenzo Maloney MD. ESTIMATED BLOOD LOSS: 700 mL COMPLICATIONS: Included need to elevate head vaginally via nursing staff secondary to low station of the head. SPECIMENS REMOVED: Placenta. cord blood gases collected. COUNTS: Sponge, needle, and instrument count correct. DISPOSITION: Stable to PACU. BRIEF HISTORY AND PROCEDURE: Patient is a 37-year-old, G3, P2 female with a single intrauterine , was admitted in Labor and Delivery on May 07, 2018, in active labor. The patient received an epidural and was expectedly managed throughout the evening. Patient was noted to be GBS positive, and antibiotics were started for prophylaxis. The patient's membranes were artificially ruptured at approximately 11:50 p.m. on May 07, 2018. The patient continued to progress throughout the day on May 08, 2018. At approximately 12 o'clock, the patient was found to be fully dilated. The patient did attempt pushing at that time, and shortly thereafter, the patient began having tachycardia. Patient's temperature was checked, and the patient had a fever of 101.0. Gentamicin was added to her antibiotic regimen, and she had received a dose of intravenous Tylenol. However, heart rate continued to climb into the 190s. The patient pushed for approximately 1 hour and made very little descent. At which point, it was decided to proceed with a delivery. The consents were signed. The patient was taken back to the operating room where her epidural anesthesia was bolused by Dr. Maloney. A Conteh catheter had previously been placed under sterile conditions. A hard timeout was performed. She was prepped and draped in the usual sterile fashion. A Pfannenstiel skin incision was created in the skin with a scalpel and carried to the underlying layer of rectus fascia bluntly. Fascia was incised on either side of the midline, and the fascial incision was extended bluntly. The fascia was from the underlying rectus muscle bluntly, and the rectus muscle was identified. The midline was entered, and the rectus muscles were retracted laterally. The peritoneum was entered bluntly and dissected to allow for adequate room for delivery. A bladder blade was then inserted. A transverse incision was created in the lower uterine segment, which was extended bluntly in the superolateral direction. The was delivered from the left occiput posterior position. Due to the low station of the head, it was difficult delivery from above, and the nursing staff gloved sterilely, helped elevate the head from the vagina until the head was able to be delivered in a flexed position. The rest of the infant delivered without difficulty. The cord was clamped twice and cut in between. The was taken over to the warmer to be assessed by the neonatology staff. scores of 8 and 9 were assigned. The placenta was then delivered intact with a 3-vessel cord. It was manually extracted. The uterus was exteriorized from the abdomen, inspected and cleared of all amniotic membrane and debris with a dry lap sponge. The hysterotomy was reapproximated in a double-layer closure using 1 Vicryl in a running locked fashion, second layer with 1 Biosyn in a running fashion. Excellent hemostasis was achieved. The posterior cul-de-sac was irrigated and suctioned, and the uterus was placed back in the abdomen. Bilateral gutters were inspected and cleared of all amniotic membrane and debris. Bilateral tubes and ovaries were noted to be normal. The peritoneum was reapproximated using 2-0 chromic in a running fashion. The musculature was reapproximated using 2 interrupted sutures, and the fascia was reapproximated using 1 Vicryl in a running fashion. The subcutaneous tissue was irrigated and reapproximated using 1 Vicryl in 3 interrupted sutures, and the skin was reapproximated in a subcuticular fashion using 3-0 Vicryl. Steri-Strips were applied. Sponge, needle, and instrument count was reported to be correct. The patient tolerated the procedure well, recovering in stable condition in the PACU at the time of this dictation. GEORGIE CASAS DO /[id number]
[2018-05-08] MEDS: OXYTOCIN 20 UNITS in 0.9% NS 20 UNIT/1,000 ML INFUS.BAG IV SCH (17:07)
[2018-05-08] MEDS ORDERED: IBUPROFEN 800 MG/8 ML IJ IVPB ONE (17:12)
[2018-05-08] MEDS: METHYLERGONOVINE MALEATE 0.2 MG/1 ML AMP IM PRN ×2 (17:30→23:39)
--- NOTE | 2018-05-08 17:34 | SURG ---
Surgery Mental Health Tech Note Mental Health Tech: Kathleen Espinoza PA-C Date of Service: 05/08/18 Diagnosis: tachycardia, maternal fever, suspected chorioamnionitis, SIUP at 39 weeks , failure to descend Procedure: primary delivery I was present for the entirety of the operative procedure. For further detail, please refer to operative report. Visit type - Case Type Case Type: ED Admission - Emergency Emergency Visit: Yes ED Registration Date: 05/07/18 Care time: The patient presented to the Emergency Department on the above date and was hospitalized for further evaluation of their emergent condition. - New patient This patient is new to me today: Yes Date on this admission: 05/08/18
[2018-05-08] MEDS: ceFAZolin 2 GRAM PREMIX BAG IVPB SCH (22:14)
[2018-05-09] MEDS: ceFAZolin 2 GRAM PREMIX BAG IVPB SCH ×2 (03:12→10:54)
--- NOTE | 2018-05-09 06:53 | PN ---
Progress Note (SOAP) - Subjective Chief Complaint: Pt doing good - Current Medications Current Medications: Active Medications Acetaminophen (Tylenol -) 650 mg PO Q4H PRN PRN Reason: FEVER Acetaminophen (Tylenol -) 650 mg PO Q4H PRN PRN Reason: PAIN LEVEL 1-5 Bisacodyl (Dulcolax Suppository -) 10 mg RC PRN PRN PRN Reason: CONSTIPATION Cefazolin Sodium/Dextrose (Ancef 2 Gm Premixed Ivpb -) 2 gm IVPB Q8H-IV ABIDA Last Admin: 05/09/18 03:12 Dose: 2 gm Diphenhydramine HCl (Benadryl Injection -) 25 mg IVPUSH Q4H PRN PRN Reason: Pruritis Last Admin: 05/08/18 20:37 Dose: 25 mg Diphtheria/Tetanus/Acell Pertussis (Boostrix -) 0.5 ml IM .ONCE ONE Stop: 05/09/18 10:01 Fentanyl/Bupivacaine/Sodium Chlor (Bupivicaine 0.125%/Fentanyl 2mcg/Ml Pcea) 50 ml EP ASDIR [facility]; Protocol Last Admin: 05/07/18 15:15 Dose: 50 ml Oxytocin/Sodium Chloride (Normal Saline+20 Units Oxytocin -) 20 unit in 1,000 mls @ 125 mls/hr IV ASDIR [facility] Last Admin: 05/08/18 17:07 Dose: 125 mls/hr Ibuprofen (Motrin -) 600 mg PO Q4H PRN PRN Reason: PAIN LEVEL 1 - 3 Ibuprofen (Caldolor Injection -) 800 mg IVPB Q8H PRN PRN Reason: PAIN LEVEL 6-10 Last Admin: 05/08/18 17:08 Dose: 800 mg Ibuprofen (Motrin -) 600 mg PO Q4H PRN PRN Reason: PAIN LEVEL 1-5 Methylergonovine Maleate (Methergine Injection -) 0.2 mg IM Q4H PRN PRN Reason: Excessive Bleeding (L&D) Last Admin: 05/08/18 23:39 Dose: 0.2 mg Naloxone HCl (Narcan -) 0.4 mg IVPUSH PRN PRN PRN Reason: Sedation Ondansetron HCl (Zofran Injection) 4 mg IVPUSH Q4H PRN PRN Reason: NAUSEA Oxycodone HCl (Roxicodone -) 5 mg PO Q4H PRN PRN Reason: PAIN LEVEL 4 - 6 Oxycodone HCl (Roxicodone -) 10 mg PO Q4H PRN PRN Reason: PAIN LEVEL 7 - 10 Multivit/Folic Acid/Iron ( Vitamins (Sjr) -) 1 tab PO DAILY ABIDA Last Admin: 05/08/18 10:36 Dose: Not Given Simethicone (Mylicon -) 80 mg PO Q4H PRN PRN Reason: GAS - Objective Vital Signs: Vital Signs Temperature 98.9 F 05/09/18 06:00 Pulse Rate 105 H 05/09/18 06:00 Respiratory Rate 18 05/09/18 06:00 Blood Pressure 108/63 05/09/18 06:00 O2 Sat by Pulse Oximetry (%) 96 05/08/18 21:00 Constitutional: Yes: Well Nourished, No Distress Cardiovascular: Yes: WNL Respiratory: Yes: WNL, Regular, CTA Bilaterally Gastrointestinal: Yes: WNL, Normal Bowel Sounds, Soft, Abdomen, Obese Breast(s): Yes: WNL Musculoskeletal: Yes: WNL Extremities: Yes: WNL Edema: Yes Edema: LLE: Trace, RLE: Trace Wound/Incision: Yes: Clean/Dry, Well Approximated, Steri Strips, Dressing Removed Neurological: Yes: WNL, Alert, Oriented Labs Lab Results: CBC, BMP 05/07/18 14:25 05/07/18 14:25 Assessment/Plan POD1 Stable Bleeding sp methergine mild tachy will check cbc Plan OOB Ambulate continue IV CBC
[2018-05-09 07:06] LABS: BASO % 0.5 % (0-2.0); EOS % 0.1 % (0-4.5); HEMATOCRIT 30.2 % (32.4-45.2); HEMOGLOBIN 10.3 GM/dL (10.7-15.3); LYMPH % 8.8 % (8-40); MCH 30.6 pg (25.7-33.7); MCHC 34.1 g/dl (32.0-36.0); MEAN CELL VOLUME 89.9 fl (80-96); MEAN PLT VOLUME 8.6 fl (7.5-11.1); MONO % 5.9 % (3.8-10.2); NEUT % 84.7 % (42.8-82.8); PLATELET COUNT 151 K/MM3 (134-434); RBC 3.35 M/mm3 (3.60-5.2); RDW 14.5 % (11.6-15.6); WHITE BLOOD COUNT 19.8 K/mm3 (4.0-10.0)
--- NOTE | 2018-05-09 08:15 | PN ---
Progress Note (short form) - Note Progress Note: ANESTHESIOLOGY POST-OP CHECK 37F s/p under epidural anesthesia, POd #1. No acute complaints. Pain 4 -5/10 and tolerable. Denies N/V, backache, headache. Vital Signs Temperature 98.9 F 05/09/18 06:00 Pulse Rate 105 H 05/09/18 06:00 Respiratory Rate 18 05/09/18 06:00 Blood Pressure 108/63 05/09/18 06:00 O2 Sat by Pulse Oximetry (%) 96 05/08/18 21:00 Active Medications Acetaminophen (Tylenol -) 650 mg PO Q4H PRN PRN Reason: FEVER Acetaminophen (Tylenol -) 650 mg PO Q4H PRN PRN Reason: PAIN LEVEL 1-5 Bisacodyl (Dulcolax Suppository -) 10 mg RC PRN PRN PRN Reason: CONSTIPATION Cefazolin Sodium/Dextrose (Ancef 2 Gm Premixed Ivpb -) 2 gm IVPB Q8H-IV ABIDA Last Admin: 05/09/18 03:12 Dose: 2 gm Diphenhydramine HCl (Benadryl Injection -) 25 mg IVPUSH Q4H PRN PRN Reason: Pruritis Last Admin: 05/08/18 20:37 Dose: 25 mg Diphtheria/Tetanus/Acell Pertussis (Boostrix -) 0.5 ml IM .ONCE ONE Stop: 05/09/18 10:01 Fentanyl/Bupivacaine/Sodium Chlor (Bupivicaine 0.125%/Fentanyl 2mcg/Ml Pcea) 50 ml EP ASDIR [facility]; Protocol Last Admin: 05/07/18 15:15 Dose: 50 ml Oxytocin/Sodium Chloride (Normal Saline+20 Units Oxytocin -) 20 unit in 1,000 mls @ 125 mls/hr IV ASDIR [facility] Last Admin: 05/08/18 17:07 Dose: 125 mls/hr Ibuprofen (Motrin -) 600 mg PO Q4H PRN PRN Reason: PAIN LEVEL 1 - 3 Ibuprofen (Caldolor Injection -) 800 mg IVPB Q8H PRN PRN Reason: PAIN LEVEL 6-10 Last Admin: 05/08/18 17:08 Dose: 800 mg Ibuprofen (Motrin -) 600 mg PO Q4H PRN PRN Reason: PAIN LEVEL 1-5 Methylergonovine Maleate (Methergine Injection -) 0.2 mg IM Q4H PRN PRN Reason: Excessive Bleeding (L&D) Last Admin: 05/08/18 23:39 Dose: 0.2 mg Naloxone HCl (Narcan -) 0.4 mg IVPUSH PRN PRN PRN Reason: Sedation Ondansetron HCl (Zofran Injection) 4 mg IVPUSH Q4H PRN PRN Reason: NAUSEA Oxycodone HCl (Roxicodone -) 5 mg PO Q4H PRN PRN Reason: PAIN LEVEL 4 - 6 Oxycodone HCl (Roxicodone -) 10 mg PO Q4H PRN PRN Reason: PAIN LEVEL 7 - 10 Multivit/Folic Acid/Iron ( Vitamins (Sjr) -) 1 tab PO DAILY ABIDA Last Admin: 05/08/18 10:36 Dose: Not Given Simethicone (Mylicon -) 80 mg PO Q4H PRN PRN Reason: GAS Gen : Awake, no apparent distress No apparent anesthesia complications. Pain well controlled. Continue management as per primary team.
[2018-05-09] MEDS ORDERED: DIPHTH,PERTUSS(ACELL),TET 0.5 ML DISP.SYRIN IM ONE (10:00)
[2018-05-09] MEDS: PRENATAL VITAMINS W/ FOLIC ACID TABLET (FP) PO SCH (10:24)
[2018-05-09] MEDS: oxyCODONE HCL 5 MG TABLET PO PRN ×2 (11:26→14:48)
[2018-05-09] MEDS: SIMETHICONE 80 MG TAB.CHEW (FP) PO PRN ×3 (11:26→22:01)
[2018-05-09] MEDS: ACETAMINOPHEN 325 MG TABLET (FP) PO PRN ×3 (11:27→22:01)
[2018-05-09] MEDS ORDERED: BISACODYL 10 MG SUPP.RECT RC PRN (13:58)
[2018-05-09 17:03] LABS: ARTERIAL BLOOD GAS PCO2 31.6 mmHg (35-45); ARTERIAL BLOOD GAS pH 7.46 (7.35-7.45)
[2018-05-09 17:04] LABS: ALLENS TEST POSITIVE; ARTERIAL BLD GAS O2 SATURATION 96.3 % (90-98.9); ARTERIAL BLOOD GAS BASE EXCESS -0.8 meq/l (-2-2)
[2018-05-09 17:11] LABS: BASO % 0.2 % (0-2.0); EOS % 0.2 % (0-4.5); HEMATOCRIT 32.5 % (32.4-45.2); HEMOGLOBIN 10.9 GM/dL (10.7-15.3); LYMPH % 5.1 % (8-40); MCHC 33.6 g/dl (32.0-36.0); MEAN CELL VOLUME 89.3 fl (80-96); MEAN PLT VOLUME 8.8 fl (7.5-11.1); MONO % 4.3 % (3.8-10.2); NEUT % 90.2 % (42.8-82.8); PLATELET COUNT 193 K/MM3 (134-434); RBC 3.63 M/mm3 (3.60-5.2); RDW 14.4 % (11.6-15.6); WHITE BLOOD COUNT 21.8 K/mm3 (4.0-10.0)
[2018-05-09 17:37] LABS: INR 1.04 (0.83-1.09); PROTHROMBIN TIME (PATIENT) 11.7 SEC (9.7-13.0)
[2018-05-09] MEDS ORDERED: AMPICILLIN SODIUM 2 GM VIAL ONE ×2 (17:48→21:50)
[2018-05-09] MEDS ORDERED: SODIUM CHLORIDE 100 ML IVPB ONE ×2 (17:49→21:52)
[2018-05-09 17:55] LABS: URINE APPEARANCE CLEAR; URINE BILIRUBIN NEGATIVE (<2.0 mg/dL); URINE COLOR YELLOW; URINE GLUCOSE (UA) NEGATIVE (NEGATIVE); URINE KETONE NEGATIVE (NEGATIVE); URINE LEUK ESTERASE TRACE (NEGATIVE); URINE NITRITE NEGATIVE (NEGATIVE); URINE PROTEIN NEGATIVE (NEGATIVE); URINE UROBILINOGEN NEGATIVE mg/dL (0.2-1.0)
[2018-05-09] MEDS: AMPICILLIN - 2 GM in SODIUM CHLORIDE 100 ML IVPB SCH ×2 (18:05→22:10)
[2018-05-09 18:11] LABS: EPI CELLS RARE /HPF (FEW); URINE MUCUS RARE
[2018-05-09] MEDS: CLINDAMYCIN 900 MG PREMIX IVPB 900 MG/50 ML BAG IVPB SCH (18:50)
[2018-05-09 19:16] LABS: ANISOCYTOSIS 2+; MACROCYTOSIS 1+; OVALOCYTE 1+; PLATELET ESTIMATE ADEQUATE
[2018-05-09] MEDS ORDERED: SODIUM CHLORIDE 1,000 ML IV SCH (19:30)
--- NOTE | 2018-05-09 19:40 | CONSULT ---
Consultation: REQUESTING PROVIDER: Dr. Casas CONSULT REQUEST: We have been asked to medically evaluate this patient for sepsis. HISTORY OF PRESENT ILLNESS 37 year-old female, , s/p POD #[address] Casas. * 11/15/17 GBS positive * 12/08/17 Flu A positive; outside window for Tamiflu * 05/06/18 Went to hospital, sent home 6:45am * 05/07/18 Went to hospital, sent home 2:30am * 05/07/18 Returned to hospital and admitted 2:30pm--> membranes ruptured at 11: 50pm-->labored overnight * 05/08/18 Sarted pushing at noon and temp noted 101; delivery ~2:20pm Antibiotics * 05/07 Ampicillin 2g 2:30pm * 05/08 Ampicillin 1g 3:00am * 05/08 Cefazolin 2g 11:00am * 05/08 Gentamycin 80mg 1:30pm Patient states she has been feeling ill since Monday, 05/05. She had several episodes of vomiting Monday night but none since. She has had intermittent chills from 05/05 to today. She denies cough. Denies diarrhea, dysuria, frequency , hesitancy. Denies SOB, [place], orthopnea, leg swelling. REVIEW OF SYSTEMS: CONSTITUTIONAL: +fever, chills Absent: fever, chills, diaphoresis, generalized weakness, malaise, loss of appetite, weight change HEENT: Absent: rhinorrhea, nasal congestion, throat pain, throat swelling, difficulty swallowing, mouth swelling, ear pain, eye pain, visual changes CARDIOVASCULAR: Absent: chest pain, syncope, palpitations, irregular heart rate, lightheadedness , peripheral edema RESPIRATORY: Absent: cough, shortness of breath, dyspnea with exertion, orthopnea, wheezing, stridor, hemoptysis GASTROINTESTINAL: +vomiting four days ago Absent: abdominal pain, abdominal distension, nausea, diarrhea, constipation, melena, hematochezia GENITOURINARY: Absent: dysuria, frequency, urgency, hesitancy, hematuria, flank pain, genital pain MUSCULOSKELETAL: Absent: myalgia, arthralgia, joint swelling, back pain, neck pain SKIN: Absent: rash, itching, pallor HEMATOLOGIC/IMMUNOLOGIC: Absent: easy bleeding, easy bruising, lymphadenopathy, frequent infections ENDOCRINE: Absent: unexplained weight gain, unexplained weight loss, heat intolerance, cold intolerance NEUROLOGIC: Absent: headache, focal weakness or paresthesias, dizziness, unsteady gait, seizure, mental status changes, bladder or bowel incontinence PSYCHIATRIC: Absent: anxiety, depression, suicidal or homicidal ideation, hallucinations. PHYSICAL EXAMINATION Vital Signs Temperature 98.0 F 05/09/18 17:51 Pulse Rate 122 H 05/09/18 17:51 Respiratory Rate 20 05/09/18 17:51 Blood Pressure 118/57 05/09/18 17:51 O2 Sat by Pulse Oximetry (%) 96 05/08/18 21:00 GENERAL: Awake, alert, and fully oriented, in no acute distress. Skin is very warm to touch and sweaty. HEAD: Normal with no signs of trauma. LUNGS: Breath sounds equal, clear to auscultation bilaterally. No wheezes, and no crackles. No accessory muscle use. HEART: Regular rate and rhythm, normal S1 and S2 without murmur, rub or gallop. ABDOMEN: Soft, diffusely tender; incision visualized, edges well approximated, surgistrips in place, no bleeding, no exudate, no odor MUSCULOSKELETAL: Normal range of motion at all joints. No bony deformities or tenderness. No CVA tenderness. UPPER EXTREMITIES: 2+ pulses, warm, well-perfused. No cyanosis. No clubbing. Cap refill <2 seconds. No peripheral edema. LOWER EXTREMITIES: 2+ pulses, warm, well-perfused. No calf tenderness. No peripheral edema. NEUROLOGICAL: Cranial nerves II-XII intact. Normal speech. SKIN: Warm, dry, normal turgor, no rashes or lesions noted. Laboratory Results - last 24 hr 05/09/18 05/09/18 05/09/18 06:00 16:48 16:50 WBC 19.8 H 21.8 H RBC 3.35 L 3.63 Hgb 10.3 L 10.9 Hct 30.2 L D 32.5 MCV 89.9 89.3 MCH 30.6 30.0 MCHC 34.1 33.6 RDW 14.5 14.4 Plt Count 151 D 193 D MPV 8.6 8.8 Absolute Neuts (auto) 16.8 19.6 Neutrophils % 84.7 H 90.2 H Lymphocytes % 8.8 5.1 L D Monocytes % 5.9 4.3 Eosinophils % 0.1 D 0.2 D Basophils % 0.5 0.2 Nucleated RBC % 0 0 Anticoagulation Therapy No Result Required. Puncture Site Right radial ABG pH 7.46 H D ABG pCO2 at Pt Temp 31.6 L D ABG pO2 at Pt Temp 76.8 L D ABG HCO3 22.1 ABG O2 Sat (Measured) 96.3 ABG O2 Content 13.9 L ABG Base Excess -0.8 Wilmer Test Positive O2 Delivery Device No Result Required. Oxygen Flow Rate Room air Vent Mode No Result Required. Vent Rate No Result Required. Mechanical Rate No Result Required. Pressure Support Vent No Result Required. Active Medications Generic Name Dose Route Start Last Admin Trade Name Freq PRN Reason Stop Dose Admin Acetaminophen 650 mg 05/08/18 13:58 05/09/18 14:49 Tylenol - PO 650 mg Q4H PRN Administration FEVER Acetaminophen 650 mg 05/08/18 15:20 Tylenol - PO Q4H PRN PAIN LEVEL 1-5 Bisacodyl 10 mg 05/09/18 13:58 Dulcolax Suppository - RC PRN PRN CONSTIPATION Diphenhydramine HCl 25 mg 05/08/18 15:20 05/08/18 20:37 Benadryl Injection - IVPUSH 25 mg Q4H PRN Administration Pruritis Fentanyl/Bupivacaine/Sodium Chlor 50 ml 05/07/18 15:30 05/07/18 15:15 Bupivicaine 0.125%/Fentanyl 2mcg/Ml Pcea EP 50 ml ASDIR ABIDA Administration Protocol Oxytocin/Sodium Chloride 20 unit in 1,000 mls @ 125 mls/hr 05/08/18 14:00 04/18 17:07 Normal Saline+20 Units Oxytocin - IV 125 mls/hr ASDIR ABIDA Administration Ampicillin Sodium 2 gm/ Sodium 100 mls @ 200 mls/hr 05/09/18 17:15 Chloride IVPB Q6H-IV ABIDA Protocol Clindamycin Phosphate 900 mg in 50 mls @ 100 mls/hr 05/09/18 18:00 Cleocin 900 Mg Premix Ivpb - IVPB Q8H-IV ABIDA Protocol Gentamicin Sulfate 300 mg/ 107.5 mls @ 107.5 mls/hr 05/09/18 18:00 Sodium Chloride IVPB DAILY ABIDA Protocol Ibuprofen 600 mg 05/08/18 13:58 Motrin - PO Q4H PRN PAIN LEVEL 1 - 3 Ibuprofen 800 mg 05/08/18 13:58 05/08/18 17:08 Caldolor Injection - IVPB 800 mg Q8H PRN Administration PAIN LEVEL 6-10 Ibuprofen 600 mg 05/08/18 15:20 Motrin - PO Q4H PRN PAIN LEVEL 1-5 Methylergonovine Maleate 0.2 mg 05/08/18 13:58 05/08/18 23:39 Methergine Injection - IM 0.2 mg Q4H PRN Administration Excessive Bleeding (L&D) Naloxone HCl 0.4 mg 05/07/18 15:24 Narcan - IVPUSH PRN PRN Sedation Ondansetron HCl 4 mg 05/08/18 15:20 Zofran Injection IVPUSH Q4H PRN NAUSEA Oxycodone HCl 5 mg 05/08/18 13:58 05/09/18 14:48 Roxicodone - PO 5 mg Q4H PRN Administration PAIN LEVEL 4 - 6 Oxycodone HCl 10 mg 05/08/18 13:58 Roxicodone - PO Q4H PRN PAIN LEVEL 7 - 10 Multivit/Folic Acid/Iron 1 tab 05/08/18 10:00 05/09/18 10:24 Vitamins (Sjr) - PO 1 tab DAILY ABIDA Administration Simethicone 80 mg 05/08/18 13:58 05/09/18 14:50 Mylicon - PO 80 mg Q4H PRN Administration GAS ASSESSMENT/PLAN: 37 year-old female, , s/p POD #[address] Casas. Severe sepsis likely secondary to chorioamnionitis --T 101.7, p 122, WBC 21.8k (3% bands), lactic acid 2.3 --Vanc 1.5g x 1 dose given --start ampicillin 2g q6h, gentamycin 300mg q24h, clindamycin 900mg q8h --advised patient to pump and dump until antibiotic regimen finalized by ID --gave 1L bolus; BP has been stable; continue NS @ 75mL/hr --CXR pending --blood, urine cultures pending --amniotic fluid was not sent for culture; placenta is in pathology; need to call pathology to get tissue sample sent for culture --flu swab, urine pna pending --repeat lactic acid 9:00pm --discussed plan with Dr. Casas Dispo: We will continue to follow the patient. Thank you for this consultative opportunity. Visit type - Emergency Visit Emergency Visit: Yes ED Registration Date: 05/07/18 Care time: The patient presented to the Emergency Department on the above date and was hospitalized for further evaluation of their emergent condition. - New Patient This patient is new to me today: Yes Date on this admission: 05/09/18 - Critical Care Critical Care patient: Yes Total Critical Care Time (in minutes): 90 Critical Care Statement: The care of this patient involved high complexity decision making to prevent further life threatening deterioration of the patient 's condition and/or to evaluate & treat vital organ system(s) failure or risk of failure.
[2018-05-09 19:45] LABS: ALBUMIN 1.9 g/dl (3.4-5.0); ANION GAP 9 (8-16); BILIRUBIN,TOTAL 0.4 mg/dL (0.2-1.0); BLOOD UREA NITROGEN 6 mg/dL (7-18); CALCIUM 7.8 mg/dL (8.5-10.1); CHLORIDE 105 mmol/L (98-107); CO2 27 mmol/L (21-32); CREATININE 0.5 mg/dL (0.55-1.02); GLUCOSE,RANDOM 135 mg/dL (74-106); POTASSIUM 3.7 mmol/L (3.5-5.1); SGOT/AST 39 U/L (15-37); SGPT/ALT 18 U/L (12-78); SODIUM 141 mmol/L (136-145); TOT PROT 4.6 g/dl (6.4-8.2)
[2018-05-09 19:46] LABS: ALK PHOS 99 U/L (45-117)
[2018-05-09] MEDS: GENTAMICIN INJECTION 300 MG in SODIUM CHLORIDE 100 ML IVPB SCH (19:51)
[2018-05-09] MEDS ORDERED: VANCOMYCIN 1,500 MG in DEXTROSE 5%-WATER - 500 ML IVPB ONE ×2 (20:00→22:00)
[2018-05-09] MEDS: FENTANYL/BUPIVACAINE/NS/PF - PCEA - 50 ML DISP.SYRIN EP SCH ×2 (21:44→21:45)
[2018-05-09] MEDS: OXYTOCIN 20 UNITS in 0.9% NS 20 UNIT/1,000 ML INFUS.BAG IV SCH (21:45)
[2018-05-09] MEDS: IBUPROFEN 600 MG TABLET (FP) PO PRN (22:09)
[2018-05-09] MEDS: AMPICILLIN - 1 GM in SODIUM CHLORIDE 100 ML IVPB SCH (23:17)
[2018-05-10] MEDS: CLINDAMYCIN 900 MG PREMIX IVPB 900 MG/50 ML BAG IVPB SCH ×2 (02:08→11:12)
[2018-05-10] MEDS ORDERED: SODIUM CHLORIDE 100 ML IVPB ONE ×2 (03:15→08:35)
[2018-05-10] MEDS ORDERED: AMPICILLIN SODIUM 2 GM VIAL ONE ×2 (03:15→08:35)
[2018-05-10] MEDS: AMPICILLIN - 2 GM in SODIUM CHLORIDE 100 ML IVPB SCH ×3 (03:21→16:13)
[2018-05-10] MEDS: IBUPROFEN 600 MG TABLET (FP) PO PRN ×3 (05:06→22:15)
[2018-05-10] MEDS: ACETAMINOPHEN 325 MG TABLET (FP) PO PRN ×3 (05:06→22:15)
--- NOTE | 2018-05-10 08:52 | PN ---
Physical Exam: SUBJECTIVE: Patient seen and examined. Sitting in chair, eating breakfast, in no acute distress. Reports having chills this morning, no fevers recorded, otherwise feels better today. OBJECTIVE: lactic acid normal, await chest xray labs pending Vital Signs Period Temp Pulse Resp BP Sys/Avila Pulse Ox Last 24 Hr 98.0 F-101.7 F 100-122 18-20 82-138/55-74 GENERAL: The patient is awake, alert, and fully oriented, in no acute distress. HEAD: Normal with no signs of trauma. EYES: PERRL, extraocular movements intact, sclera anicteric, conjunctiva clear. No ptosis. ENT: Ears normal, nares patent, oropharynx clear without exudates, moist mucous membranes. NECK: Trachea midline, full range of motion, supple. LUNGS: Breath sounds equal, clear to auscultation bilaterally, no wheezes, on room air HEART: Regular rate and rhythm ABDOMEN:s/p c section, no drainage EXTREMITIES: no edema. NEUROLOGICAL: Normal speech, gait not observed. PSYCH: Normal mood, normal affec Laboratory Results - last 24 hr 05/09/18 05/09/18 05/09/18 16:45 16:48 16:50 WBC 21.8 H RBC 3.63 Hgb 10.9 Hct 32.5 MCV 89.3 MCH 30.0 MCHC 33.6 RDW 14.4 Plt Count 193 D MPV 8.8 Absolute Neuts (auto) 19.6 Neutrophils % 90.2 H Neutrophils % (Manual) 89.0 H Band Neutrophils % 3.0 Lymphocytes % 5.1 L D Lymphocytes % (Manual) 7.0 L Monocytes % 4.3 Monocytes % (Manual) 1 L Eosinophils % 0.2 D Basophils % 0.2 Nucleated RBC % 0 Platelet Estimate Adequate Platelet Comment No clumping noted Anisocytosis 2+ Microcytosis 1+ Macrocytosis 1+ Ovalocytes 1+ PT with INR INR PTT (Actin FS) Anticoagulation Therapy No Result Required. Puncture Site Right radial ABG pH 7.46 H D ABG pCO2 at Pt Temp 31.6 L D ABG pO2 at Pt Temp 122.0 H D ABG HCO3 22.1 ABG O2 Sat (Measured) 96.3 ABG O2 Content 13.9 L ABG Base Excess -0.8 Wilmer Test Positive O2 Delivery Device No Result Required. Oxygen Flow Rate Room air Vent Mode No Result Required. Vent Rate No Result Required. Mechanical Rate No Result Required. Pressure Support Vent No Result Required. Sodium Potassium Chloride Carbon Dioxide Anion Gap BUN Creatinine Creat Clearance w eGFR Random Glucose Lactic Acid Calcium Total Bilirubin AST ALT Alkaline Phosphatase C-Reactive Protein Total Protein Albumin Urine Color Yellow Urine Appearance Clear Urine pH 5.0 Ur Specific [place] 1.014 Urine Protein Negative Urine Glucose (UA) Negative Urine Ketones Negative Urine Blood 3+ H Urine Nitrite Negative Urine Bilirubin Negative Urine Urobilinogen Negative Ur Leukocyte Esterase Trace Urine WBC (Auto) 44 Urine RBC (Auto) 249 Ur Epithelial Cells Rare Urine Mucus Rare 05/09/18 05/09/18 05/09/18 16:55 16:55 17:30 WBC RBC Hgb Hct MCV MCH MCHC RDW Plt Count MPV Absolute Neuts (auto) Neutrophils % Neutrophils % (Manual) Band Neutrophils % Lymphocytes % Lymphocytes % (Manual) Monocytes % Monocytes % (Manual) Eosinophils % Basophils % Nucleated RBC % Platelet Estimate Platelet Comment Anisocytosis Microcytosis Macrocytosis Ovalocytes PT with INR 11.70 INR 1.04 PTT (Actin FS) 27.0 Anticoagulation Therapy Puncture Site ABG pH ABG pCO2 at Pt Temp ABG pO2 at Pt Temp ABG HCO3 ABG O2 Sat (Measured) ABG O2 Content ABG Base Excess Wilmer Test O2 Delivery Device Oxygen Flow Rate Vent Mode Vent Rate Mechanical Rate Pressure Support Vent Sodium 141 Potassium 3.7 Chloride 105 Carbon Dioxide 27 Anion Gap 9 BUN 6 L Creatinine 0.5 L Creat Clearance w eGFR > 60 Random Glucose 135 H Lactic Acid 2.3 H* Calcium 7.8 L Total Bilirubin 0.4 AST 39 H ALT 18 Alkaline Phosphatase 99 C-Reactive Protein Total Protein 4.6 L Albumin 1.9 L Urine Color Urine Appearance Urine pH Ur Specific [place] Urine Protein Urine Glucose (UA) Urine Ketones Urine Blood Urine Nitrite Urine Bilirubin Urine Urobilinogen Ur Leukocyte Esterase Urine WBC (Auto) Urine RBC (Auto) Ur Epithelial Cells Urine Mucus 05/09/18 05/09/18 17:30 21:00 WBC RBC Hgb Hct MCV MCH MCHC RDW Plt Count MPV Absolute Neuts (auto) Neutrophils % Neutrophils % (Manual) Band Neutrophils % Lymphocytes % Lymphocytes % (Manual) Monocytes % Monocytes % (Manual) Eosinophils % Basophils % Nucleated RBC % Platelet Estimate Platelet Comment Anisocytosis Microcytosis Macrocytosis Ovalocytes PT with INR INR PTT (Actin FS) Anticoagulation Therapy Puncture Site ABG pH ABG pCO2 at Pt Temp ABG pO2 at Pt Temp ABG HCO3 ABG O2 Sat (Measured) ABG O2 Content ABG Base Excess Wilmer Test O2 Delivery Device Oxygen Flow Rate Vent Mode Vent Rate Mechanical Rate Pressure Support Vent Sodium Potassium Chloride Carbon Dioxide Anion Gap BUN Creatinine Creat Clearance w eGFR Random Glucose Lactic Acid 1.9 Calcium Total Bilirubin AST ALT Alkaline Phosphatase C-Reactive Protein 21.2 H Total Protein Albumin Urine Color Urine Appearance Urine pH Ur Specific [place] Urine Protein Urine Glucose (UA) Urine Ketones Urine Blood Urine Nitrite Urine Bilirubin Urine Urobilinogen Ur Leukocyte Esterase Urine WBC (Auto) Urine RBC (Auto) Ur Epithelial Cells Urine Mucus Active Medications Generic Name Dose Route Start Last Admin Trade Name Freq PRN Reason Stop Dose Admin Acetaminophen 650 mg 05/08/18 13:58 05/10/18 05:06 Tylenol - PO 650 mg Q4H PRN Administration FEVER Acetaminophen 650 mg 05/08/18 15:20 Tylenol - PO Q4H PRN PAIN LEVEL 1-5 Bisacodyl 10 mg 05/09/18 13:58 Dulcolax Suppository - RC PRN PRN CONSTIPATION Diphenhydramine HCl 25 mg 05/08/18 15:20 05/08/18 20:37 Benadryl Injection - IVPUSH 25 mg Q4H PRN Administration Pruritis Oxytocin/Sodium Chloride 20 unit in 1,000 mls @ 125 mls/hr 05/08/18 14:00 05/19 21:45 Normal Saline+20 Units Oxytocin - IV Not Given ASDIR ABIDA Ampicillin Sodium 2 gm/ Sodium 100 mls @ 200 mls/hr 05/09/18 17:15 05/10/18 03:21 Chloride IVPB 200 mls/hr Q6H-IV ABIDA Administration Protocol Clindamycin Phosphate 900 mg in 50 mls @ 100 mls/hr 05/09/18 18:00 05/10/18 02:08 Cleocin 900 Mg Premix Ivpb - IVPB 100 mls/hr Q8H-IV ABIDA Administration Protocol Gentamicin Sulfate 300 mg/ 107.5 mls @ 107.5 mls/hr 05/09/18 18:00 05/09/18 19:51 Sodium Chloride IVPB 107.5 mls/hr DAILY ABIDA Administration Protocol Sodium Chloride 1,000 mls @ 75 mls/hr 05/09/18 19:30 05/09/18 21:46 Normal Saline - IV Not Given ASDIR ABIDA Ibuprofen 600 mg 05/08/18 13:58 05/10/18 05:06 Motrin - PO 600 mg Q4H PRN Administration PAIN LEVEL 1 - 3 Ibuprofen 800 mg 05/08/18 13:58 05/08/18 17:08 Caldolor Injection - IVPB 800 mg Q8H PRN Administration PAIN LEVEL 6-10 Ibuprofen 600 mg 05/08/18 15:20 Motrin - PO Q4H PRN PAIN LEVEL 1-5 Methylergonovine Maleate 0.2 mg 05/08/18 13:58 05/08/18 23:39 Methergine Injection - IM 0.2 mg Q4H PRN Administration Excessive Bleeding (L&D) Naloxone HCl 0.4 mg 05/07/18 15:24 Narcan - IVPUSH PRN PRN Sedation Ondansetron HCl 4 mg 05/08/18 15:20 Zofran Injection IVPUSH Q4H PRN NAUSEA Oxycodone HCl 5 mg 05/08/18 13:58 05/09/18 14:48 Roxicodone - PO 5 mg Q4H PRN Administration PAIN LEVEL 4 - 6 Oxycodone HCl 10 mg 05/08/18 13:58 Roxicodone - PO Q4H PRN PAIN LEVEL 7 - 10 Multivit/Folic Acid/Iron 1 tab 05/08/18 10:00 05/09/18 10:24 Vitamins (Sjr) - PO 1 tab DAILY ABIDA Administration Simethicone 80 mg 05/08/18 13:58 05/09/18 22:01 Mylicon - PO 80 mg Q4H PRN Administration GAS ASSESSMENT/PLAN: Patient is a 37 year old female grava 3, para 3 who is s/p cesearan section on . She developed signs of sepsis after delivery likely secondary to chorioamnionitis. ID: Sepsis secondary to chorioamnionitis: Afebrile today, wbc 21>19. lactic acidosis resolved. Treated initially with vanco, gentamycin, ampicillin and clindamycin. Seen by ID, previous antibiotics stopped, now on Zosyn. Chest xray with no acute process. Blood and urine cultures pending. Amniotic fluids were not sent for culture, placenta at pathology lab. Spoke to microlab and orders placed for tissue culture. However, tissue unable to be cultured since placenta was placed on formulin prior to tissue culture order placed. 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 fen PO intake adequate monitor electrolytes regular diet pre rafael vitamins full code - Visit type - Emergency Visit Emergency Visit: Yes ED Registration Date: 05/07/18 Care time: The patient presented to the Emergency Department on the above date and was hospitalized for further evaluation of their emergent condition. - New Patient This patient is new to me today: Yes Date on this admission: 05/10/18 - Critical Care Critical Care patient: No - Discharge Referral Referred to [facility] Med P.C.: No
[2018-05-10] MEDS: PRENATAL VITAMINS W/ FOLIC ACID TABLET (FP) PO SCH (09:34)
--- NOTE | 2018-05-10 09:47 | PN ---
Progress Note (short form) - Note Progress Note: Pt in shower upon my arrival to room this a.m. Pt doing well per nursing. Will re evaluate pt this afternoon. Problem List - Problems (1) Active labor at term Code(s): [id number] - (2) GBS (group B Streptococcus carrier), +RV culture, currently Code(s): O99.820 - STREPTOCOCCUS B CARRIER STATE COMPLICATING
[2018-05-10 09:53] LABS: BASO % 0.2 % (0-2.0); EOS % 0.2 % (0-4.5); HEMATOCRIT 29.4 % (32.4-45.2); LYMPH % 7.1 % (8-40); MCH 30.2 pg (25.7-33.7); MEAN CELL VOLUME 88.9 fl (80-96); MEAN PLT VOLUME 8.7 fl (7.5-11.1); MONO % 3.4 % (3.8-10.2); NEUT % 89.1 % (42.8-82.8); PLATELET COUNT 209 K/MM3 (134-434); RDW 14.4 % (11.6-15.6); WHITE BLOOD COUNT 19.8 K/mm3 (4.0-10.0)
[2018-05-10] MEDS: OXYTOCIN 20 UNITS in 0.9% NS 20 UNIT/1,000 ML INFUS.BAG IV SCH (10:00)
[2018-05-10 10:18] LABS: ANION GAP 12 (8-16); BILIRUBIN,TOTAL 0.4 mg/dL (0.2-1.0); BLOOD UREA NITROGEN 6 mg/dL (7-18); CALCIUM 8.1 mg/dL (8.5-10.1); CHLORIDE 106 mmol/L (98-107); CO2 26 mmol/L (21-32); CREATININE 0.7 mg/dL (0.55-1.02); GLUCOSE,RANDOM 149 mg/dL (74-106); MAGNESIUM 1.7 mg/dL (1.8-2.4); POTASSIUM 3.4 mmol/L (3.5-5.1); SGOT/AST 40 U/L (15-37); SGPT/ALT 20 U/L (12-78); SODIUM 144 mmol/L (136-145); TOT PROT 4.8 g/dl (6.4-8.2)
[2018-05-10 10:19] LABS: ALK PHOS 99 U/L (45-117)
[2018-05-10] MEDS ORDERED: MAGNESIUM OXIDE 400 MG TABLET (FP) PO ONE (12:00)
[2018-05-10] MEDS ORDERED: POTASSIUM CHLORIDE TABS 20 MEQ TABLET.ER (FP) PO ONE (12:00)
[2018-05-10] MEDS: GENTAMICIN INJECTION 300 MG in SODIUM CHLORIDE 100 ML IVPB SCH (12:02)
--- NOTE | 2018-05-10 16:07 | PN ---
Progress Note (short form) - Note Progress Note: ID Consult dictated POD #2 Intrapartum fever/ tachycardia Leukocytosis Await c/s Empiric Zosyn
[2018-05-10] MEDS: SIMETHICONE 80 MG TAB.CHEW (FP) PO PRN ×2 (16:10→22:16)
--- NOTE | 2018-05-10 16:57 | PN ---
Post Progress Note - Subjective Subjective: PT seen/evaluated and doing well. Feeling much improved. Tolerating regular diet, ambulating, voiding, passing flatus. Had some chills overnight but denies fevers. No CP/SOB/WILL. Abd pain/incisional pain improving. +BM Type of Delivery: Primary C/S Vital Signs: Vital Signs Temperature 98.4 F 05/10/18 14:00 Pulse Rate 116 H 05/10/18 14:00 Respiratory Rate 20 05/10/18 14:00 Blood Pressure 110/56 05/10/18 14:00 O2 Sat by Pulse Oximetry (%) 96 05/08/18 21:00 Uterus: Yes: Fundus Firm Incision: Yes: Dressing dry and intact Abdomen/GI: Yes: Abdomen soft, Passing flatus, Tolerating PO Lochia: Yes: Rubra Lochia, amount: Small Extremities: Yes: Calves non-tender Perineum: Yes: Intact Activity: Ambulating - Labs Labs: CBC WBC 19.8 K/mm3 (4.0-10.0) H 05/10/18 09:25 RBC 3.30 M/mm3 (3.60-5.2) L 05/10/18 09:25 Hgb 10.0 GM/dL (10.7-15.3) L 05/10/18 09:25 Hct 29.4 % (32.4-45.2) L 05/10/18 09:25 MCV 88.9 fl (80-96) 05/10/18 09:25 MCH 30.2 pg (25.7-33.7) 05/10/18 09:25 MCHC 34.0 g/dl (32.0-36.0) 05/10/18 09:25 RDW 14.4 % (11.6-15.6) 05/10/18 09:25 Plt Count 209 K/MM3 (134-434) 05/10/18 09:25 MPV 8.7 fl (7.5-11.1) 05/10/18 09:25 Absolute Neuts (auto) 17.6 # 05/10/18 09:25 Neutrophils % 89.1 % (42.8-82.8) H 05/10/18 09:25 Neutrophils % (Manual) 89.0 % (42.8-82.8) H 05/09/18 16:48 Band Neutrophils % 3.0 % 05/09/18 16:48 Lymphocytes % 7.1 % (8-40) L D 05/10/18 09:25 Lymphocytes % (Manual) 7.0 % (8-40) L 05/09/18 16:48 Monocytes % 3.4 % (3.8-10.2) L 05/10/18 09:25 Monocytes % (Manual) 1 % (3.8-10.2) L 05/09/18 16:48 Eosinophils % 0.2 % (0-4.5) 05/10/18 09:25 Basophils % 0.2 % (0-2.0) 05/10/18 09:25 Nucleated RBC % 0 % (0-0) 05/10/18 09:25 Platelet Estimate Adequate 05/09/18 16:48 Platelet Comment No clumping noted 05/09/18 16:48 Anisocytosis 2+ 05/09/18 16:48 Microcytosis 1+ 05/09/18 16:48 Macrocytosis 1+ 05/09/18 16:48 Ovalocytes 1+ 05/09/18 16:48 Problem List - Problems (1) Active labor at term Code(s): BOF3729 - (2) GBS (group B Streptococcus carrier), +RV culture, currently Code(s): O99.820 - STREPTOCOCCUS B CARRIER STATE COMPLICATING (3) Chorioamnionitis Code(s): O41.1290 - CHORIOAMNIONITIS, UNSP TRIMESTER, NOT APPLICABLE OR UNSP Assessment/Plan 37 y/o POD#2 s/p primary delivery for tachycardia, suspected chorioamnionitis, failure to descend Afebrile since yesterday at 1611 continue antibiotics per medical/ID team Pt on vanco/zosyn -ok to pump and save breast milk/breast feed - no need to pump and dump regular diet PO pain meds
[2018-05-10] MEDS: PIPERACILLIN/TAZOB 4.5 GM 4.5 GM in DEXTROSE 5%-WATER 100 ML IVPB SCH (17:33)
[2018-05-11] MEDS: PIPERACILLIN/TAZOB 4.5 GM 4.5 GM in DEXTROSE 5%-WATER 100 ML IVPB SCH ×3 (02:06→17:01)
[2018-05-11 08:39] LABS: BASO % 0.6 % (0-2.0); EOS % 1.8 % (0-4.5); HEMATOCRIT 28.5 % (32.4-45.2); HEMOGLOBIN 9.8 GM/dL (10.7-15.3); LYMPH % 11.9 % (8-40); MCH 30.2 pg (25.7-33.7); MCHC 34.4 g/dl (32.0-36.0); MEAN CELL VOLUME 87.7 fl (80-96); MEAN PLT VOLUME 8.6 fl (7.5-11.1); MONO % 3.8 % (3.8-10.2); NEUT % 81.9 % (42.8-82.8); PLATELET COUNT 228 K/MM3 (134-434); RBC 3.25 M/mm3 (3.60-5.2); RDW 14.5 % (11.6-15.6); WHITE BLOOD COUNT 12.9 K/mm3 (4.0-10.0)
[2018-05-11] MEDS: ACETAMINOPHEN 325 MG TABLET (FP) PO PRN ×2 (09:31→17:42)
[2018-05-11] MEDS: SIMETHICONE 80 MG TAB.CHEW (FP) PO PRN ×2 (09:31→17:42)
[2018-05-11] MEDS: PRENATAL VITAMINS W/ FOLIC ACID TABLET (FP) PO SCH (09:31)
[2018-05-11] MEDS: IBUPROFEN 600 MG TABLET (FP) PO PRN ×2 (09:32→17:42)
--- NOTE | 2018-05-11 09:32 | PATH ---
Surgical Pathology Report Patient Name: DENY SEBASTIAN Med. Rec. 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 Specimen(s) Received PLACENTA Clinical History , 39.3 weeks, x2 Postoperative diagnosis: Nonreassuring heart rate and chorioamnionitis Final Diagnosis PLACENTA, DELIVERY: 480 g THIRD TRIMESTER PLACENTA WITH TRIVASCULAR UMBILICAL CORD, MODERATE ACUTE CHORIOAMNIONITIS AND ACUTE MILD PANVASCULITIS WITH FOCAL FUNISITIS. Electronically Signed Taylor Valencia M.D. Gross Description The specimen is received fresh labeled placenta and is a 480 gram, 17.0 x 14.5 x 2.6 cm. placenta with attached membranes and umbilical cord. The attached membranes are razo, translucent with focal opacities and insert marginally. The umbilical cord measures 20 cm. in length and averages 0.9 cm. in diameter. The cord inserts at the margin. No true knots or strictures are identified. Cut surface of the umbilical cord reveals no vessels. The surface is medina-blue with minimal fibrin deposition and appropriate caliber vessels. The maternal surface is red-brown with focal defects. Sectioning reveals red-brown, spongy parenchyma. No lesions are identified. Abrasives Sales Representative sections are submitted in three cassettes as follows: 1- membrane rolls and umbilical cord; 2-3- full thickness sections of placenta. 05/09/2018 saudi05/09/2018
[2018-05-11 10:35] LABS: ALBUMIN 1.8 g/dl (3.4-5.0); ANION GAP 10 (8-16); BLOOD UREA NITROGEN 10 mg/dL (7-18); CALCIUM 7.9 mg/dL (8.5-10.1); CHLORIDE 107 mmol/L (98-107); CO2 27 mmol/L (21-32); GLUCOSE,RANDOM 154 mg/dL (74-106); MAGNESIUM 1.5 mg/dL (1.8-2.4); POTASSIUM 3.4 mmol/L (3.5-5.1); SODIUM 144 mmol/L (136-145)
[2018-05-11 10:39] LABS: ALK PHOS 91 U/L (45-117); BILIRUBIN,TOTAL 0.3 mg/dL (0.2-1.0); CREATININE 0.6 mg/dL (0.55-1.02); SGOT/AST 30 U/L (15-37); SGPT/ALT 21 U/L (12-78); TOT PROT 4.6 g/dl (6.4-8.2)
--- NOTE | 2018-05-11 13:19 | PN ---
Post Progress Note - Subjective Subjective: Pt seen/evaluated and doing well. Pt denies pain. Afebrile. Tolerating diet, ambulating, voiding, passing flatus. No complaints. Type of Delivery: Primary C/S Vital Signs: Vital Signs Temperature 98.1 F 05/11/18 09:41 Pulse Rate 95 H 05/11/18 09:41 Respiratory Rate 20 05/11/18 09:41 Blood Pressure 139/65 05/11/18 09:41 O2 Sat by Pulse Oximetry (%) 96 05/08/18 21:00 Uterus: Yes: Fundus Firm, Fundus below umbilicus Incision: Yes: Sutures intact Abdomen/GI: Yes: Abdomen soft, Tender (appropriate post surgical tenderness), Passing flatus, Tolerating PO. No: Abdominal Distention Lochia: Yes: Rubra Lochia, amount: Small Extremities: Yes: Calves non-tender. No: Edema Perineum: Yes: Intact Activity: Ambulating - Labs Labs: CBC WBC 12.9 K/mm3 (4.0-10.0) H 05/11/18 08:05 RBC 3.25 M/mm3 (3.60-5.2) L 05/11/18 08:05 Hgb 9.8 GM/dL (10.7-15.3) L 05/11/18 08:05 Hct 28.5 % (32.4-45.2) L 05/11/18 08:05 MCV 87.7 fl (80-96) 05/11/18 08:05 MCH 30.2 pg (25.7-33.7) 05/11/18 08:05 MCHC 34.4 g/dl (32.0-36.0) 05/11/18 08:05 RDW 14.5 % (11.6-15.6) 05/11/18 08:05 Plt Count 228 K/MM3 (134-434) 05/11/18 08:05 MPV 8.6 fl (7.5-11.1) 05/11/18 08:05 Absolute Neuts (auto) 10.6 # 05/11/18 08:05 Neutrophils % 81.9 % (42.8-82.8) 05/11/18 08:05 Neutrophils % (Manual) 89.0 % (42.8-82.8) H 05/09/18 16:48 Band Neutrophils % 3.0 % 05/09/18 16:48 Lymphocytes % 11.9 % (8-40) D 05/11/18 08:05 Lymphocytes % (Manual) 7.0 % (8-40) L 05/09/18 16:48 Monocytes % 3.8 % (3.8-10.2) 05/11/18 08:05 Monocytes % (Manual) 1 % (3.8-10.2) L 05/09/18 16:48 Eosinophils % 1.8 % (0-4.5) D 05/11/18 08:05 Basophils % 0.6 % (0-2.0) 05/11/18 08:05 Nucleated RBC % 0 % (0-0) 05/11/18 08:05 Platelet Estimate Adequate 05/09/18 16:48 Platelet Comment No clumping noted 05/09/18 16:48 Anisocytosis 2+ 05/09/18 16:48 Microcytosis 1+ 05/09/18 16:48 Macrocytosis 1+ 05/09/18 16:48 Ovalocytes 1+ 05/09/18 16:48 Problem List - Problems (1) Active labor at term Code(s): [id number] - (2) GBS (group B Streptococcus carrier), +RV culture, currently Code(s): O99.820 - STREPTOCOCCUS B CARRIER STATE COMPLICATING (3) Chorioamnionitis Code(s): O41.1290 - CHORIOAMNIONITIS, UNSP TRIMESTER, NOT APPLICABLE OR UNSP (4) Leukocytosis Code(s): D72.829 - ELEVATED WHITE BLOOD CELL COUNT, UNSPECIFIED Assessment/Plan 37 y/o POD#3 s/p primary delivery for tachycardia, suspected chorioamnionitis, failure to descend Afebrile, VSS leukocytosis imroving (WBC 12.9 today) continue antibiotics per medical/ID team -ok to pump and save breast milk/ breast feed on current regimen - no need to pump and dump regular diet PO pain meds Likely d/c home in a.m. if stable/afebrile
[2018-05-11] MEDS ORDERED: POTASSIUM CHLORIDE TABS 20 MEQ TABLET.ER (FP) PO ONE (13:59)
[2018-05-11] MEDS ORDERED: MAGNESIUM OXIDE 400 MG TABLET (FP) PO ONE ×2 (14:30→21:00)
--- NOTE | 2018-05-11 16:02 | PN ---
Progress Note, Physician History of Present Illness: OOB in chair No complaints Afebrile Heart rate improved WBC improved Cultures negative - Current Medication List Current Medications: Active Medications Acetaminophen (Tylenol -) 650 mg PO Q4H PRN PRN Reason: FEVER Last Admin: 05/11/18 09:31 Dose: 650 mg Acetaminophen (Tylenol -) 650 mg PO Q4H PRN PRN Reason: PAIN LEVEL 1-5 Bisacodyl (Dulcolax Suppository -) 10 mg RC PRN PRN PRN Reason: CONSTIPATION Diphenhydramine HCl (Benadryl Injection -) 25 mg IVPUSH Q4H PRN PRN Reason: Pruritis Last Admin: 05/08/18 20:37 Dose: 25 mg Oxytocin/Sodium Chloride (Normal Saline+20 Units Oxytocin -) 20 unit in 1,000 mls @ 125 mls/hr IV ASDIR ABIDA Last Admin: 05/10/18 10:00 Dose: 125 mls/hr Piperacillin Sod/Tazobactam (Sod 4.5 gm/ Dextrose) 100 mls @ 200 mls/hr IVPB Q8H-IV ABIDA; Protocol Last Admin: 05/11/18 09:36 Dose: 200 mls/hr Ibuprofen (Motrin -) 600 mg PO Q4H PRN PRN Reason: PAIN LEVEL 1 - 3 Last Admin: 05/11/18 09:32 Dose: 600 mg Ibuprofen (Caldolor Injection -) 800 mg IVPB Q8H PRN PRN Reason: PAIN LEVEL 6-10 Last Admin: 05/08/18 17:08 Dose: 800 mg Ibuprofen (Motrin -) 600 mg PO Q4H PRN PRN Reason: PAIN LEVEL 1-5 Magnesium Oxide (Mag-Ox -) 400 mg PO ONCE ONE Stop: 05/11/18 21:01 Methylergonovine Maleate (Methergine Injection -) 0.2 mg IM Q4H PRN PRN Reason: Excessive Bleeding (L&D) Last Admin: 05/08/18 23:39 Dose: 0.2 mg Naloxone HCl (Narcan -) 0.4 mg IVPUSH PRN PRN PRN Reason: Sedation Ondansetron HCl (Zofran Injection) 4 mg IVPUSH Q4H PRN PRN Reason: NAUSEA Oxycodone HCl (Roxicodone -) 5 mg PO Q4H PRN PRN Reason: PAIN LEVEL 4 - 6 Last Admin: 05/09/18 14:48 Dose: 5 mg Oxycodone HCl (Roxicodone -) 10 mg PO Q4H PRN PRN Reason: PAIN LEVEL 7 - 10 Multivit/Folic Acid/Iron ( Vitamins (Sjr) -) 1 tab PO DAILY ABIDA Last Admin: 05/11/18 09:31 Dose: 1 tab Simethicone (Mylicon -) 80 mg PO Q4H PRN PRN Reason: GAS Last Admin: 05/11/18 09:31 Dose: 80 mg - Objective Vital Signs: Vital Signs Temperature 98.1 F 05/11/18 13:41 Pulse Rate 95 H 05/11/18 09:41 Respiratory Rate 20 05/11/18 09:41 Blood Pressure 139/65 05/11/18 09:41 O2 Sat by Pulse Oximetry (%) 96 05/08/18 21:00 Constitutional: Yes: No Distress, Obese Eyes: Yes: Conjunctiva Clear Cardiovascular: Yes: Regular Rate and Rhythm, S1, S2 Respiratory: Yes: CTA Bilaterally Gastrointestinal: Yes: Normal Bowel Sounds, Soft. No: Tenderness Extremities: No: Calf Tenderness Edema: Yes Labs: CBC, BMP 05/11/18 08:05 05/11/18 09:55 INR, PTT INR 1.04 (0.83-1.09) 05/09/18 16:55 Assessment/Plan Probable chorioamnionitis improved Fever/ leukocytosis improved Continue zosyn x 24h If stable po Augmentin am
--- NOTE | 2018-05-11 16:44 | PN ---
Physical Exam: SUBJECTIVE: Patient seen and examined at the bedside. OBJECTIVE: Vital Signs Period Temp Pulse Resp BP Sys/Avila Pulse Ox Last 24 Hr 97.7 F-99 F 84-110 18-20 84-139/54-68 GENERAL: The patient is awake, alert, and fully oriented, in no acute distress. HEAD: Normal with no signs of trauma. EYES: PERRL, extraocular movements intact, sclera anicteric, conjunctiva clear. No ptosis. ENT: Ears normal, nares patent, oropharynx clear without exudates, moist mucous membranes. NECK: Trachea midline, full range of motion, supple. LUNGS: Breath sounds equal, clear to auscultation bilaterally, no wheezes, on room air HEART: Regular rate and rhythm ABDOMEN:s/p c section, no drainage EXTREMITIES: lower ext edema bilaterally, likely secondary of ivf hydration. NEUROLOGICAL: Normal speech, gait not observed. PSYCH: Normal mood, normal affec Laboratory Results - last 24 hr 05/11/18 05/11/18 08:05 09:55 WBC 12.9 H RBC 3.25 L Hgb 9.8 L Hct 28.5 L MCV 87.7 MCH 30.2 MCHC 34.4 RDW 14.5 Plt Count 228 MPV 8.6 Absolute Neuts (auto) 10.6 Neutrophils % 81.9 Lymphocytes % 11.9 D Monocytes % 3.8 Eosinophils % 1.8 D Basophils % 0.6 Nucleated RBC % 0 Sodium 144 Potassium 3.4 L Chloride 107 Carbon Dioxide 27 Anion Gap 10 BUN 10 Creatinine 0.6 Creat Clearance w eGFR > 60 Random Glucose 154 H Calcium 7.9 L Magnesium 1.5 L Total Bilirubin 0.3 AST 30 ALT 21 Alkaline Phosphatase 91 Total Protein 4.6 L Albumin 1.8 L Active Medications Generic Name Dose Route Start Last Admin Trade Name Freq PRN Reason Stop Dose Admin Acetaminophen 650 mg 05/08/18 13:58 05/11/18 09:31 Tylenol - PO 650 mg Q4H PRN Administration FEVER Acetaminophen 650 mg 05/08/18 15:20 Tylenol - PO Q4H PRN PAIN LEVEL 1-5 Bisacodyl 10 mg 05/09/18 13:58 Dulcolax Suppository - RC PRN PRN CONSTIPATION Diphenhydramine HCl 25 mg 05/08/18 15:20 05/08/18 20:37 Benadryl Injection - IVPUSH 25 mg Q4H PRN Administration Pruritis Oxytocin/Sodium Chloride 20 unit in 1,000 mls @ 125 mls/hr 05/08/18 14:00 06/19 10:00 Normal Saline+20 Units Oxytocin - IV 125 mls/hr ASDIR ABIDA Administration Piperacillin Sod/Tazobactam 100 mls @ 200 mls/hr 05/10/18 18:00 05/11/18 09: 36 Sod 4.5 gm/ Dextrose IVPB 200 mls/hr Q8H-IV ABIDA Administration Protocol Ibuprofen 600 mg 05/08/18 13:58 05/11/18 09:32 Motrin - PO 600 mg Q4H PRN Administration PAIN LEVEL 1 - 3 Ibuprofen 800 mg 05/08/18 13:58 05/08/18 17:08 Caldolor Injection - IVPB 800 mg Q8H PRN Administration PAIN LEVEL 6-10 Ibuprofen 600 mg 05/08/18 15:20 Motrin - PO Q4H PRN PAIN LEVEL 1-5 Magnesium Oxide 400 mg 05/11/18 21:00 Mag-Ox - PO 05/11/18 21:01 ONCE ONE Methylergonovine Maleate 0.2 mg 05/08/18 13:58 05/08/18 23:39 Methergine Injection - IM 0.2 mg Q4H PRN Administration Excessive Bleeding (L&D) Naloxone HCl 0.4 mg 05/07/18 15:24 Narcan - IVPUSH PRN PRN Sedation Ondansetron HCl 4 mg 05/08/18 15:20 Zofran Injection IVPUSH Q4H PRN NAUSEA Oxycodone HCl 5 mg 05/08/18 13:58 05/09/18 14:48 Roxicodone - PO 5 mg Q4H PRN Administration PAIN LEVEL 4 - 6 Oxycodone HCl 10 mg 05/08/18 13:58 Roxicodone - PO Q4H PRN PAIN LEVEL 7 - 10 Multivit/Folic Acid/Iron 1 tab 05/08/18 10:00 05/11/18 09:31 Vitamins (Sjr) - PO 1 tab DAILY ABIDA Administration Simethicone 80 mg 05/08/18 13:58 05/11/18 09:31 Mylicon - PO 80 mg Q4H PRN Administration GAS ASSESSMENT/PLAN: Patient is a 37 year old female grava 3, para 3 who is s/p cesearan section on . She developed signs of sepsis after delivery likely secondary to chorioamnionitis. ID: Sepsis secondary to chorioamnionitis, resolved Afebrile, wbc 21>12. lactic acidosis resolved. Treated initially with vanco, gentamycin, ampicillin and clindamycin. Followed by ID, now on Zosyn (day 2). Chest xray with no acute process. Blood and urine cultures negative. Will switch to augmentin tomorrow in anticipation of discharge. Amniotic fluids were not sent for culture, placenta at pathology lab. However, tissue unable to be cultured since placenta was placed on formulin prior to tissue culture order placed. 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 fen PO intake adequate monitor electrolytes, hypomag and hypokalemia repleted regular diet pre vitamins full code Visit type - Emergency Visit Emergency Visit: Yes ED Registration Date: 05/07/18 Care time: The patient presented to the Emergency Department on the above date and was hospitalized for further evaluation of their emergent condition. - New Patient This patient is new to me today: No - Critical Care Critical Care patient: No - Discharge Referral Referred to [facility] No
[2018-05-11 20:50] VITALS: TEMP 98.2
[2018-05-12] MEDS: PIPERACILLIN/TAZOB 4.5 GM 4.5 GM in DEXTROSE 5%-WATER 100 ML IVPB SCH ×2 (01:35→09:35)
[2018-05-12] MEDS: ACETAMINOPHEN 325 MG TABLET (FP) PO PRN (02:43)
[2018-05-12] MEDS: IBUPROFEN 600 MG TABLET (FP) PO PRN (02:44)
[2018-05-12] MEDS: SIMETHICONE 80 MG TAB.CHEW (FP) PO PRN (02:46)
[2018-05-12 08:09] LABS: BASO % 1.2 % (0-2.0); EOS % 3.4 % (0-4.5); HEMATOCRIT 28.1 % (32.4-45.2); HEMOGLOBIN 9.7 GM/dL (10.7-15.3); LYMPH % 20.1 % (8-40); MCH 30.7 pg (25.7-33.7); MCHC 34.6 g/dl (32.0-36.0); MEAN CELL VOLUME 88.8 fl (80-96); MONO % 4.7 % (3.8-10.2); NEUT % 70.6 % (42.8-82.8); PLATELET COUNT 247 K/MM3 (134-434); RBC 3.16 M/mm3 (3.60-5.2); RDW 14.4 % (11.6-15.6); WHITE BLOOD COUNT 8.5 K/mm3 (4.0-10.0)
--- NOTE | 2018-05-12 08:31 | DS ---
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: Vital Signs Temperature 98.2 F 05/12/18 01:37 Pulse Rate 94 H 05/11/18 20:50 Respiratory Rate 20 05/11/18 20:50 Blood Pressure 124/60 05/11/18 20:50 O2 Sat by Pulse Oximetry (%) 96 05/08/18 21:00 Constitutional: Yes: Well Nourished Eyes: Yes: Conjunctiva Clear HENT: Yes: Atraumatic Neck: Yes: Supple Cardiovascular: Yes: Regular Rate and Rhythm Respiratory: Yes: Regular Gastrointestinal: Yes: Normal Bowel Sounds External Genitalia: Yes: Normal Vaginal Exam: Yes: Normal Cervix: Yes: Normal Breast(s): Yes: WNL Musculoskeletal: Yes: WNL Extremities: Yes: WNL Wound/Incision: Yes: Clean/Dry, Well Approximated, Sutures Intact Neurological: Yes: Alert, Oriented ...Motor Strength: WNL Psychiatric: Yes: Alert, Oriented Labs: CBC, BMP 05/12/18 07:50 Delivery - Delivery Type of Anesthesia: Epidural Episiotomy/Laceration: None EBL (cc): 700 Delivery, Single - Stages of Labor Date 1st Stage Initiatied: 05/07/18 Time 1st Stage Initiated: 11:00 Date 2nd Stage Initiated: 05/08/18 Time 2nd Stage Initiated: 13:15 Date of Delivery: 05/08/18 Time of Delivery: 14:21 Time Placenta Delivered: 14:22 - 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 Name: Chris Vernon Gender: Female Weight: 8 lb 5 oz Position: Left, OP Total Hours ROM (Hrs/Mins): 14hrs/32mins - 1 Minute Total Score: 8 5 Minutes Total Score: 9 - Feeding Plan Initial Plan: Elected not to breastfeed exclusively throughout hospitalization Discharge Summary Reason For Visit: LABOR Current Active Problems Active labor at term (Acute) Chorioamnionitis (Acute) GBS (group B Streptococcus carrier), +RV culture, currently (Acute) Leukocytosis (Acute) Procedures: Principal: Status post Hospital Course: Patient was diagnosed with Chorioamnionitis during labor and underwent C- section. She received IV antibiotic during period until resolution of the infection. Condition: Stable - Instructions Diet, Activity, Other Instructions: Physical activity Resume your normal everyday activity as tolerated no heavy lifting or exercise until seen by your surgeon. You may walk unlimited tiffany of and climb stairs. You may resume driving the car when you feel safe and comfortable behind the wheel. No sexual activity as instructed. Wound care If you have a bandage, leave it on, and keep dry for 48-72 hours. After that time discard the outer bandage. If they are tapes on the skin under the out of bandage leave them in place. They will peel off in the next 7 to 10 days. Do Not Peel them off. You may shower the day after surgery. If there are tapes present on the skin, you may shower over them. Diet There are no dietary restrictions. Eat healthy, high-fiber foods. Drink 6 to 8 glasses of liquid each day. This will assist in keeping your bowels are regular. Pain management You may take Tylenol or acetaminophen or Ibuprofen (for example, Motrin, Advil etc.) from my pain prescription medication is ordered should be taken as prescribed for moderate to severe pain. Call MD for any of the following: Severe pain not relieved by medication Fever of 101 or higher Excessive bleeding or drainage on dressing Inability to urinate Referrals: Georgie Casas DO [Staff Physician] - 1 Week Disposition: HOME - Home Medications Comprehensive Discharge Medication List: Ambulatory Orders Pnv No.95/Ferrous Fum/Folic AC [ Vitamin Tablet] 1 each PO DAILY Ibuprofen [Motrin -] 600 mg PO QID PRN #28 tablet 05/08/18 Oxycodone HCl/Acetaminophen [Percocet 5-325 mg Tablet -] 1 tab PO Q4H #30 tablet MDD 6 05/11/18
[2018-05-12 09:00] VITALS: BP 113/65; PULSE 87
[2018-05-12 09:07] LABS: ALBUMIN 1.8 g/dl (3.4-5.0); ANION GAP 3 (8-16); BLOOD UREA NITROGEN 9 mg/dL (7-18); CALCIUM 7.7 mg/dL (8.5-10.1); CHLORIDE 106 mmol/L (98-107); CO2 31 mmol/L (21-32); GLUCOSE,RANDOM 85 mg/dL (74-106); MAGNESIUM 1.6 mg/dL (1.8-2.4); POTASSIUM 4.4 mmol/L (3.5-5.1); SODIUM 140 mmol/L (136-145)
[2018-05-12 09:10] LABS: ALK PHOS 91 U/L (45-117); BILIRUBIN,TOTAL 0.2 mg/dL (0.2-1.0); CREATININE 0.5 mg/dL (0.55-1.02); SGOT/AST 26 U/L (15-37); SGPT/ALT 23 U/L (12-78); TOT PROT 4.8 g/dl (6.4-8.2)
[2018-05-12] MEDS: PRENATAL VITAMINS W/ FOLIC ACID TABLET (FP) PO SCH (09:37)
== END 2018-05-12 13:40 | disposition home or self-care (01) | DRG 540 ==
LOC: JLDR 13:53 → J3W 05-08 18:00
PROVIDERS: ADMIT Obstetrics & Gynecology; ATTEND Obstetrics & Gynecology
PROC: 10D00Z1 Extraction of Products of Conception, Low, Open Approach (ICD-10-PCS; principal; 2018-05-08)
DX: O75.3 Other infection during labor (principal); O41.1230 Chorioamnionitis, third trimester, not applicable or unspecified; A41.9 Sepsis, unspecified organism; R65.20 Severe sepsis without septic shock; E87.2 Acidosis; O72.1 Other immediate postpartum hemorrhage; O32.4XX0 Maternal care for high head at term, not applicable or unspecified; O76 Abnormality in fetal heart rate and rhythm complicating labor and delivery; O99.824 Streptococcus B carrier state complicating childbirth; Z3A.39 39 weeks gestation of pregnancy; Z37.0 Single live birth
CPT/HCPCS: 36415; 36600; 71046-TC-FY; 74019-TC-FY; 80048; 80053; 81003; 81015; 82803; 83605; 83735; 85025; 85610; 85730; 86140; 86593; 86850; 86900; 86901; 87040; 87086; 87389; 87899; 88307-TC; J0131

== ENCOUNTER 2018-09-05 09:10 | Emergency (ER) | payer SELFPAY ==
[2018-09-05 09:32] VITALS: BP 113/74; PULSE 85; TEMP 98.7; BMI 27.3
--- NOTE | 2018-09-05 10:20 | PDOC ---
History of Present Illness - General Chief Complaint: Injury Stated Complaint: RT HAND PAIN Time Seen by Provider: 09/05/18 09:53 History Source: Patient Exam Limitations: Clinical Condition - History of Present Illness Initial Comments: 09/05/18 10:15 Patient with no significant past medication present with complaint of persistent pain to right thumb and radial side of wrist for 3 weeks. 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 Patient reported hitting the right thumb on a door week ago which made the pain worse. Patient denies numbness or tingling sensation. Patient reported increased pain when she extend the right thumb. Timing/Duration: other (3 weeks) Past History - Past Medical History Allergies/Adverse Reactions: Allergies Allergy/AdvReac Type Severity Reaction Status Date / Time No Known Allergies Allergy Verified 09/05/18 09:28 Home Medications: Ambulatory Orders Naproxen 500 mg PO BID PRN #20 tablet 09/05/18 Asthma: No Cancer: No Cardiac Disorders: No COPD: No Diabetes: No HTN: No Seizures: No Thyroid Disease: No Other medical history: DENIES. - Reproductive History (#): 3 Para: 2 Cervical CA: No Dysfunctional Uterine Bleeding: No Ectopic : No Endometrial CA: No Polycystic Ovaries: No Therapeutic (s) & number: No Tubal Ligation: No - Suicide/Smoking/Psychosocial Hx Smoking History: Never smoked Have you smoked in the past 12 months: No Hx Alcohol Use: No Drug/Substance Use Hx: No Substance Use Type: None Hx Substance Use Treatment: No Review of Systems - Review of Systems Able to Perform ROS?: Yes Is the patient limited [place] proficient: No Constitutional: No: Weakness Respiratory: No: Symptoms reported Cardiac (ROS): No: Symptoms Reported ABD/GI: No: Symptoms Reported Musculoskeletal: Yes: See HPI, Joint Pain (right wrist), Muscle Pain (right thumb). No: Joint Swelling, Muscle Weakness, Joint Stiffness Neurological: No: Numbness, Paresthesia, Tingling, Weakness All Other Systems: Reviewed and Negative *Physical Exam - Vital Signs Last Vital Signs Temp Pulse Resp BP Pulse Ox 98.7 F 85 19 113/74 99 09/05/18 09:29 09/05/18 09:29 09/05/18 09:29 09/05/18 09:29 09/05/18 09:29 - Physical Exam Comments: 09/05/18 10:17 GENERAL: Well developed, well nourished. Awake and alert. No acute distress. CARDIOVASCULAR: Regular rate and rhythm. No murmurs, rubs, or gallops. PULMONARY: No evidence of respiratory distress. Lungs clear to auscultation bilaterally. No wheezing, rales or rhonchi. ABDOMINAL: Soft. Non-tender. Non-distended. No rebound or guarding. No organomegaly. Normoactive bowel sounds MUSCULOSKELETAL : moderate tenderness over base of right thumb and radial side of right wrist. increased pain to base of thumb with ulnar deviation of wrist. No bony deformities EXTREMITIES: No cyanosis. No clubbing. No edema. No calf tenderness. SKIN: Warm and dry. Normal capillary refill. No rashes. No jaundice. NEUROLOGICAL: Alert, awake, appropriate. No motor deficits in the lower extremities. Gait is normal without ataxia. PSYCHIATRIC: Cooperative. Good eye contact. Appropriate mood and affect. General Appearance: Yes: Nourished, Appropriately Dressed. No: Apparent Distress Moderate Sedation - Procedure Monitoring Vital Signs: Procedure Monitoring Vital Signs Temperature 98.7 F 09/05/18 09:29 Pulse Rate 85 09/05/18 09:29 Respiratory Rate 19 09/05/18 09:29 Blood Pressure 113/74 09/05/18 09:29 O2 Sat by Pulse Oximetry (%) 99 09/05/18 09:29 ED Treatment Course - RADIOLOGY Radiology Studies Ordered: Category Date Time Status WRIST W/HAND-RIGHT* [RAD] Stat Radiology 09/05/18 10:09 Ordered Medical Decision Making - Medical Decision Making 09/05/18 10:19 Patient with no significant past medical history present with complaint of pain to right thumb which has been persistent for 3 weeks and worse in the last week after hitting thumb on a door. Exam significant for moderate tenderness to base of right thumb with increased pain to ulnar deviation of right wrist consistent with De- Quervain's syndrome. X-ray of right hand and wrist ordered. Patient be discharged home on NSAIDs and wrist brace if negative x-ray. 09/05/18 10:51 x-rays of right wrist and hand shows no acute fracture or pathology. symptoms likely De Quervain's syndrome. right wrist wrapped with ramya bandage and wrist support brace. patient stable for discharge on naproxen with orthopedics follow- up as needed *DC/Admit/Observation/Transfer Diagnosis at time of Disposition: De Quervain's tenosynovitis, right - Discharge Dispostion Disposition: HOME Condition at time of disposition: Stable Decision to Admit order: No - Prescriptions Prescriptions: Naproxen 500 mg PO BID PRN #20 tablet PRN Reason: pain - Referrals Referrals: Tian Contreras MD [Staff Physician] - - Patient Instructions Printed Discharge Instructions: DI for Tenosynovitis Additional Instructions: take medication as prescribed. rest right wrist. keep brace on daily until symptoms improves. follow-up with orthopedics as needed if symptoms persist for more than a week - Post Discharge Activity Forms/Work/School Notes: Back to Work
== END 2018-09-05 11:02 | disposition home or self-care (01) ==
LOC: JERFT 09:10
PROC: 2W3CX1Z Immobilization of Right Lower Arm using Splint (ICD-10-PCS; principal; 2018-09-05)
DX: M65.4 Radial styloid tenosynovitis [de Quervain] (principal)
CPT/HCPCS: 73110-TC-RT-FY; 73130-TC-RT-FY; 99281-25

== ENCOUNTER 2018-10-29 11:31 | Emergency (ER) | payer OTHER ==
[2018-10-29 11:36] VITALS: BP 107/69; PULSE 90; BMI 33.2
--- NOTE | 2018-10-29 12:34 | PDOC ---
History of Present Illness - General Chief Complaint: Injury Stated Complaint: RIGHT HANDED PAIN Time Seen by Provider: 10/29/18 12:26 History Source: Patient Exam Limitations: No Limitations - History of Present Illness Initial Comments: 10/29/18 14:02 Pt is a 38 y/o F who presents to the ED for R wrist pain for 2 months. She states that it hurts when she abducts and adducts the R wrist. Pt has a child at home. Pt states that she has been taking Tylenol and Motrin for the pain with little relief of her symptoms. Pt states that she was seen approximately one month ago for similar symptoms. She has not followed up with orthopedics. Denies fevers, numbness and tingling to the extremities, weakness to the extremities. Past History - Travel Traveled outside of the country in the last 30 days: No Close contact w/someone who was outside of country & ill: No - Past Medical History Allergies/Adverse Reactions: Allergies Allergy/AdvReac Type Severity Reaction Status Date / Time No Known Allergies Allergy Verified 10/29/18 11:33 Home Medications: Ambulatory Orders NK [No Known Home Medication] 10/29/18 Asthma: No Cancer: No Cardiac Disorders: No COPD: No Diabetes: No HTN: No Seizures: No Thyroid Disease: No - Reproductive History (#): 3 Para: 2 Cervical CA: No Dysfunctional Uterine Bleeding: No Ectopic : No Endometrial CA: No Polycystic Ovaries: No Therapeutic (s) & number: No Tubal Ligation: No - Suicide/Smoking/Psychosocial Hx Smoking History: Unknown if ever smoked Have you smoked in the past 12 months: No Hx Alcohol Use: No Drug/Substance Use Hx: No Substance Use Type: None Hx Substance Use Treatment: No Review of Systems - Review of Systems Able to Perform ROS?: Yes Comments:: 10/29/18 13:59 CONSTITUTIONAL: Absent: fever, chills, diaphoresis, generalized weakness, malaise, loss of appetite MUSCULOSKELETAL: Present: R wrist and hand pain Absent: myalgia, arthralgia, joint swelling SKIN: Absent: rash, itching, pallor NEUROLOGIC: Absent: headache, focal weakness or paresthesias, dizziness, unsteady gait, seizure, mental status changes, bladder or bowel incontinence PSYCHIATRIC: Absent: anxiety, depression, suicidal or homicidal ideation, hallucinations. Is the patient limited Kiswahili proficient: No *Physical Exam - Vital Signs Last Vital Signs Temp Pulse Resp BP Pulse Ox 90 18 107/69 98 10/29/18 11:34 10/29/18 11:34 10/29/18 11:34 10/29/18 11:34 - Physical Exam Comments: 10/29/18 14:00 GENERAL: The patient is awake, alert, and fully oriented, in no acute distress. HEAD: Normal with no signs of trauma. EYES: Pupils equal, round and reactive to light, extraocular movements intact, sclera anicteric, conjunctiva clear. EXTREMITIES: (+) finklestein test on the R wrist. TTP of the medial aspect of the distal radius. No crepitus on palpation. Normal range of motion, no edema. NEUROLOGICAL:Normal speech, normal gait. PSYCH: Normal mood, normal affect. SKIN: Warm, Dry, normal turgor, no rashes or lesions noted. Moderate Sedation - Procedure Monitoring Vital Signs: Procedure Monitoring Vital Signs Temperature Pulse Rate 90 10/29/18 11:34 Respiratory Rate 18 10/29/18 11:34 Blood Pressure 107/69 10/29/18 11:34 O2 Sat by Pulse Oximetry (%) 98 10/29/18 11:34 Medical Decision Making - Medical Decision Making 10/29/18 14:06 Patient is a 38-year-old female presents to the ER for 2 months of right wrist pain. On exam patient positive Garrett's test. Most likely de Quervain's tenosynovitis as patient has a at home. X-ray is negative for fractures Patient already has wrist braces from last ER visit. Continue to take NSAIDs Emphasized the need to follow-up with or so for further treatment. I discussed the physical exam findings, ancillary test results and final diagnoses with the patient. I answered all of the patient's questions. The patient was satisfied with the care received and felt comfortable with the discharge plan and treatment plan. The Patient agrees to follow up with the primary care physician/specialist within 24-72 hours. Return precautions were given. *DC/Admit/Observation/Transfer Diagnosis at time of Disposition: De Quervain's tenosynovitis, right - Discharge Dispostion Disposition: HOME Condition at time of disposition: Stable Decision to Admit order: No - Referrals Referrals: Anay Chavez MD [Primary Care Provider] - Man Meyers MD [Staff Physician] - Benito Ceron DO [Staff Physician] - Diogenes Rios MD [Staff Physician] - - Patient Instructions Printed Discharge Instructions: DI for Tenosynovitis Additional Instructions: You have de Quervain's tenosynovitis. Your x-ray was normal today. Please take naproxen 500 mg twice a day to help with her pain. Please wear the wrist brace your previously given to help the muscles in the wrist relax. Please follow up with orthopedics as soon as possible. He most likely need a cortisone shot to treat the pain. Return to ER for any new or worsening symptoms. - Post Discharge Activity Forms/Work/School Notes: Back to Work
== END 2018-10-29 13:19 | disposition home or self-care (01) ==
LOC: JERFT 11:31
DX: M65.4 Radial styloid tenosynovitis [de Quervain] (principal)
CPT/HCPCS: 73110-TC-RT-FY; 73130-TC-RT-FY; 99281-25

== ENCOUNTER 2018-12-27 05:22 | Day surgery (SDC) | payer OTHER ==
[2018-12-21 14:30] VITALS: BMI 28.3
--- NOTE | 2018-12-27 12:22 | HP ---
History & Physical Update - History History: No Change - Physical Physical: No Change - Assessment Assessment: No Change - Plan Plan: No Change (No change in HP)
--- NOTE | 2018-12-27 12:23 | OP ---
Operative Note - Note: Operative Date: 12/27/18 Pre-Operative Diagnosis: multiparity. voluntary sterilization Operation: Enterolysis. Laparoscopic bilateral salpingectomy Findings: numerous omental adhesions Post-Operative Diagnosis: Same as Pre-op Surgeon: Martha Baxter Rn Paralegal: Kathleen Espinoza Anesthesia: General Estimated Blood Loss (mls): 10 Operative Report Dictated: Yes
--- NOTE | 2018-12-27 15:54 | OP ---
DATE OF OPERATION: 12/27/2018 PREOPERATIVE DIAGNOSIS: Multiparity, voluntary sterilization. OPERATION: Enterolysis and laparoscopic bilateral salpingectomy. POSTOPERATIVE DIAGNOSIS: Multiparity, voluntary sterilization, numbers omental adhesions adherent to the anterior abdominal wall. SURGEON: Tabby Gallardo MD FIRE PROTECTION FABRICATOR: GUY Nails ANESTHESIA: General. ANESTHESIOLOGIST: Kristian Meadows MD ESTIMATED BLOOD LOSS: 10 mL. PROCEDURE: Patient was taken to the operating room, placed in dorsal lithotomy position, prepped and draped in the usual sterile fashion. A Conteh catheter was inserted into the bladder. Attention was then drawn to the umbilicus where a 5-mm umbilical incision was made. A Veress needle was inserted into the cavity. Approximately 3 to 4 L of CO2 was insulfated in the cavity. Veress needle was then removed, and a 5-mm trocar was then inserted. Laparoscope and camera visualization revealed numerous omental adhesions. Trocar was placed on the left side after scalpel had been used to make a 5-mm incision and trocar was inserted under direct visualization. Same procedure was repeated on the other side. Scalpel was then used to make an incision and trocar was inserted under direct visualization. The omental adhesions were then grasped, and LigaSure was then used to cut the dense adhesions away from the anterior abdominal wall. Enterolysis was performed. Tubes were noted. There was a left ovarian cyst about 3- to 4-cm seen on the left ovary. Tubes were bilaterally grasped, and coagulation and cutting of both the left and the right tubes were done. Both tubes were then removed and submitted to pathology. Hemostasis had been achieved. CO2 was removed from the abdomen. All instruments were then removed. Trocars were removed. Incisions were then closed using 4-0 Biosyn suture in a subcuticular fashion. Wound was washed and dressed. Patient tolerated the procedure well. Estimated blood loss was 10 mL. TABBY GALLARDO M.D. MONISHA/[id number]
--- NOTE | 2018-12-27 15:54 | OP ---
Operative Note - Note: Operative Date: 12/27/18 Pre-Operative Diagnosis: voluntary sterilation Operation: laparoscopic bilateral salpingectomy, enterolysis Surgeon: Robby Mcintosh Piece Jobber: Kathleen Espinoza Anesthesiologist/VEGETABLE BUNCHER: Dany Diego Anesthesia: General Specimens Removed: bilateral salpingx Estimated Blood Loss (mls): 10 Drains, Volume Out (mls): 200 (olvera) Fluid Volume Replaced (mls): 650 Operative Report Dictated: Yes
--- NOTE | 2018-12-27 15:57 | SURG ---
Surgery Cocoa Powder Mixer Operator Note Cocoa Powder Mixer Operator: Kathleen Espinoza PA-C Date of Service: 12/27/18 Diagnosis: multiparity. voluntary sterilization Procedure: Enterolysis. Laparoscopic bilateral salpingectomy I was present for the entirety of the operative procedure. For further detail, please refer to operative report. Visit type - Case Type Case Type: Scheduled - Emergency Emergency Visit: No - New patient This patient is new to me today: Yes Date on this admission: 12/27/18
[2018-12-27 17:49] VITALS: BP 119/66; PULSE 83; TEMP 97.9
--- NOTE | 2018-12-31 14:09 | PATH ---
Surgical Pathology Report Patient Name: DENY SEBASTIAN Med. Rec. #: [id number] /Age/Gender: 1980 (Age: 38) / F Account: [id number] Location: [facility] SUR[facility] Taken: 12/27/2018 Received: 12/28/2018 Reported: 12/31/2018 Physicians: Martha Baxter M.D. Specimen(s) Received A: RIGHT FALLOPIAN TUBE B: LEFT FALLOPIAN TUBE C: REMOVED IUD Clinical History Voluntary sterilization Final Diagnosis A. RIGHT FALLOPIAN TUBE, SALPINGECTOMY: COMPLETE CROSS SECTION OF FALLOPIAN TUBE IDENTIFIED. ACUTE AND CHRONIC INFLAMMATORY EXUDATE PRESENT IN THE LUMEN. SEE COMMENT. B. LEFT FALLOPIAN TUBE, SALPINGECTOMY: COMPLETE CROSS SECTION OF FALLOPIAN TUBE IDENTIFIED. ACUTE AND CHRONIC INFLAMMATORY EXUDATE PRESENT IN THE LUMEN, SEE COMMENT. C. REMOVED IUD: CONSISTENT WITH INTRAUTERINE DEVICE. GROSS EXAMINATION ONLY. Comment: Findings are suggestive of acute salpingitis, Clinical correlation recommended. Electronically Signed Yari Millan M.D. Gross Description A. Received in formalin labeled "right fallopian tube," is a 4.5 cm in length the fimbriated fallopian tube. The outer surface is razo medina and smooth with a 0.5 cm in greatest dimension paratubal cyst attached. Sectioning reveals an unremarkable lumen. Picking Table Worker sections are submitted in 2 cassettes as follows: 1-fimbria; 2-cross sections of fallopian tube and paratubal cyst. B. Received in formalin labeled "left fallopian tube," is a 4 cm in length fimbriated fallopian tube. The outer surface is razo medina and smooth. Sectioning reveals an unremarkable lumen. Picking Table Worker sections are submitted in 2 cassettes as follows: 1-fimbria; 2-cross sections of fallopian tube. C. Received fresh labeled "removed IUD," is a 3.5 cm in length T. Shaped device with attached string, consistent with an IUD. No soft tissue is present. No sections are submitted, gross only. 12/28/2018 saudi12/28/2018
== END 2018-12-27 17:45 | disposition home or self-care (01) ==
LOC: JASU-SURG 05:22
PROVIDERS: ATTEND Obstetrics & Gynecology
PROC: 0U574ZZ Destruction of Bilateral Fallopian Tubes, Percutaneous Endoscopic Approach (ICD-10-PCS; principal; 2018-12-27 12:00)
PROC: 0DNW4ZZ Release Peritoneum, Percutaneous Endoscopic Approach (ICD-10-PCS; 2018-12-27 12:00)
DX: Z30.2 Encounter for sterilization (principal); K66.0 Peritoneal adhesions (postprocedural) (postinfection)
CPT/HCPCS: 84703; 88300-TC; 88302-TC; 94760

== ENCOUNTER 2019-11-28 20:41 | Emergency (ER) | payer OTHER ==
[2019-11-28] MEDS ORDERED: IBUPROFEN 600 MG TABLET (FP) PO ONE ×2 (21:56→22:12)
[2019-11-28] MEDS ORDERED: ACETAMINOPHEN 500 MG TABLET (FP) PO ONE (21:56)
[2019-11-28 22:01] VITALS: TEMP 98.3; BMI 32.2
[2019-11-28] MEDS ORDERED: ACETAMINOPHEN 325 MG TABLET (FP) ONE (22:11)
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
[2019-11-29 04:44] VITALS: BP 133/81; PULSE 86
== END 2019-11-28 23:50 | disposition home or self-care (01) ==
LOC: JER 20:41
DX: S06.9X9A Unspecified intracranial injury with loss of consciousness of unspecified duration, initial encounter (principal); S00.03XA Contusion of scalp, initial encounter; Y04.2XXA Assault by strike against or bumped into by another person, initial encounter; Y93.89 Activity, other specified; Y92.038 Other place in apartment as the place of occurrence of the external cause; Y99.8 Other external cause status; Y07.499 Other family member, perpetrator of maltreatment and neglect
CPT/HCPCS: 70450-TC; 71111-TC-FY; 99284-25

== ENCOUNTER 2021-05-28 19:42 | Emergency (ER) | payer OTHER ==
[2021-05-28 19:56] VITALS: BP 110/66; PULSE 96; TEMP 97; BMI 31.2
== END 2021-05-28 20:45 | disposition home or self-care (01) ==
LOC: JERFT 19:42 → JER 19:42
DX: R21 Rash and other nonspecific skin eruption (principal)
CPT/HCPCS: 99283-25

== ENCOUNTER 2021-11-07 00:11 | Emergency (ER) | payer OTHER ==
[2021-11-07 00:22] VITALS: TEMP 99.1; BMI 27.3
[2021-11-07] MEDS ORDERED: ACETAMINOPHEN 1000 MG/100 ML BAG IVPB ONE (01:19)
[2021-11-07] MEDS ORDERED: SODIUM CHLORIDE 0.9% 500 ML INFUS.BAG IV ONE (01:20)
[2021-11-07] MEDS ORDERED: ACETAMINOPHEN 500 MG TABLET (FP) PO ONE (01:40)
[2021-11-07] MEDS ORDERED: ACETAMINOPHEN 325 MG TABLET (FP) ONE (01:46)
[2021-11-07 02:10] LABS: BASO % 0.6 % (0-2.0); EOS % 0.3 % (0-4.5); HEMATOCRIT 39.5 % (32.4-45.2); HEMOGLOBIN 13.3 GM/dL (10.7-15.3); LYMPH % 13.4 % (8-40); MCH 29.4 pg (25.7-33.7); MCHC 33.5 g/dl (32.0-36.0); MEAN CELL VOLUME 87.7 fl (80-96); MEAN PLT VOLUME 9.5 fl (7.5-11.1); MONO % 6.4 % (3.8-10.2); NEUT % 79.3 % (42.8-82.8); PLATELET COUNT 196 10^3/uL (134-434); RBC 4.51 M/mm3 (3.60-5.2); RDW 12.9 % (11.6-15.6); WHITE BLOOD COUNT 12.9 K/mm3 (4.0-10.0)
[2021-11-07 02:12] LABS: EPI CELLS 6 /uL (0-25.1); HYALINE CASTS 2 /uL (0-3.1); URINE APPEARANCE TURBID; URINE BACTERIA >9,000 /uL (0-1359); URINE BILIRUBIN NEGATIVE (NEGATIVE); URINE COLOR YELLOW; URINE GLUCOSE (UA) NEGATIVE (NEGATIVE); URINE KETONE NEGATIVE (NEGATIVE); URINE LEUK ESTERASE 3+ (NEGATIVE); URINE NITRITE NEGATIVE (NEGATIVE); URINE PROTEIN 1+ (NEGATIVE); URINE RBC 132 /uL (0-23.9); URINE UROBILINOGEN 0.2 mg/dL (0.2-1.0); URINE WBC 4237 /uL (0-25.8)
[2021-11-07 02:29] LABS: HCG,QUALITATIVE URINE Negative
[2021-11-07 02:33] LABS: ALBUMIN 3.4 g/dl (3.4-5.0); CALCIUM 8.9 mg/dL (8.5-10.1)
[2021-11-07 02:34] LABS: BLOOD UREA NITROGEN 12.6 mg/dL (7-18)
[2021-11-07 02:37] LABS: BILIRUBIN,TOTAL 0.3 mg/dL (0.2-1); CREATININE 0.7 mg/dL (0.55-1.3); TOT PROT 6.8 g/dl (6.4-8.2)
[2021-11-07] MEDS ORDERED: CEPHALEXIN MONOHYDRATE 500 MG CAPSULE (UD) PO ONE (03:56)
[2021-11-07] MEDS ORDERED: CEPHALEXIN MONOHYDRATE 500 MG CAPSULE (UD) ONE (03:59)
[2021-11-07 04:07] VITALS: BP 118/61; PULSE 84
[2021-11-07] MEDS ORDERED: levoFLOXacin 750 MG TABLET PO SCH (10:00)
[2021-11-07 17:22] LABS: YEAST NONE SEEN (NEGATIVE)
== END 2021-11-07 04:24 | disposition home or self-care (01) ==
LOC: JER 00:11
DX: N39.0 Urinary tract infection, site not specified (principal)
CPT/HCPCS: 36415; 74176-TC; 80053; 81003; 84703; 85025; 87086; 87186; 99285-25

== ENCOUNTER 2023-10-13 16:37 | Emergency (ER) | payer OTHER ==
[2023-10-13 16:50] VITALS: BP 116/76; PULSE 91; RESP 18; TEMP 98.3; BMI 29.2
[2023-10-13] MEDS ORDERED: ACETAMINOPHEN 325 MG TABLET (FP) PO ONE (17:10)
[2023-10-13] MEDS ORDERED: ACETAMINOPHEN 325 MG TABLET (FP) ONE (17:20)
== END 2023-10-13 17:25 | disposition home or self-care (01) ==
LOC: JERFT 16:37 → JER 16:37 → JERFT 17:25
DX: R05.9 Cough, unspecified (principal); H92.01 Otalgia, right ear; R50.9 Fever, unspecified; J02.9 Acute pharyngitis, unspecified; R19.7 Diarrhea, unspecified; H93.8X1 Other specified disorders of right ear; H67.1 Otitis media in diseases classified elsewhere, right ear
CPT/HCPCS: 99283-25

== ENCOUNTER 2024-02-29 11:32 | Emergency (ER) | payer OTHER ==
[2024-02-29 11:43] VITALS: BP 110/73; PULSE 82; RESP 18; TEMP 98.6; BMI 30.7
[2024-02-29] MEDS ORDERED: HIV POST EXPOSURE PROPHYLAXIS KIT NR ONE (12:30)
[2024-02-29] MEDS ORDERED: HIV POST EXPOSURE PROPHYLAXIS KIT PO ONE (12:33)
[2024-02-29 13:31] LABS: BASO % 0.6 % (0-2.0); EOS % 0.8 % (0-4.5); HEMOGLOBIN 13.9 GM/dL (10.7-15.3); MCH 29.5 pg (25.7-33.7); MCHC 33.1 g/dl (32.0-36.0); MEAN CELL VOLUME 89.2 fl (80-96); MEAN PLT VOLUME 9.6 fl (7.5-11.1); NEUT % 71.6 % (42.8-82.8); PLATELET COUNT 240 10^3/uL (134-434); RBC 4.71 M/mm3 (3.60-5.2); RDW 12.9 % (11.6-15.6)
[2024-02-29 13:54] LABS: CALCIUM 9.2 mg/dL (8.5-10.1)
[2024-02-29 13:55] LABS: ALBUMIN 3.8 g/dl (3.4-5.0); BLOOD UREA NITROGEN 12.7 mg/dL (7-18)
[2024-02-29 13:59] LABS: PHOSPHOROUS 2.4 mg/dL (2.5-4.9); TOT PROT 7.6 g/dl (6.4-8.2)
[2024-02-29 14:00] LABS: BILIRUBIN,TOTAL 0.5 mg/dL (0.2-1)
[2024-02-29 14:03] LABS: CREATININE 0.7 mg/dL (0.55-1.3)
[2024-02-29 14:49] LABS: HIV INTERPRETATION NEGATIVE (NEGATIVE)
== END 2024-02-29 13:06 | disposition home or self-care (01) ==
LOC: JERFT 11:32
DX: S61.431A Puncture wound without foreign body of right hand, initial encounter (principal); W46.0XXA Contact with hypodermic needle, initial encounter; Y99.0 Civilian activity done for income or pay
CPT/HCPCS: 36415; 80053; 82465; 82977; 84100; 85025; 86704; 86803; 87340; 87389; 87517; 99283-25